=== PATIENT | male | born 1970 | race African-American/Black ===

== ENCOUNTER → 2017-12-25 | Outpatient (CLI) | payer BC ==
--- NOTE | 2017-12-25 15:42 | RADIOLOGY REPORT (SQ) ---
EXAM DESCRIPTION: ANKLE LEFT COMPLETE COMPLETED DATE/TIME: 12/25/2017 2:31 pm REASON FOR STUDY: PAIN RIGHT KNEE, LEFT ANKLE AND JOINTS OF LEFT FOOT COMPARISON: None. NUMBER OF VIEWS: Three views. TECHNIQUE: AP, lateral, and oblique without weight bearing radiographic images acquired of the left ankle. LIMITATIONS: None. FINDINGS: MINERALIZATION: Normal. BONES: No acute fracture or dislocation. No worrisome bone lesions. Talonavicular osteophytes. Smal l calcaneal and plantar enthesophytes. JOINTS: No effusions. SOFT TISSUES: Lateral soft tissue swelling. OTHER: No other significant finding. IMPRESSION: No acute findings. Chronic changes. Soft tissue swelling. TECHNICAL DOCUMENTATION: JOB ID: [id number] [employer]- All Rights Reserved
--- NOTE | 2017-12-25 15:46 | RADIOLOGY REPORT (SQ) ---
EXAM DESCRIPTION: KNEE RIGHT 4 VIEWS COMPLETED DATE/TIME: 12/25/2017 2:31 pm REASON FOR STUDY: PAIN RIGHT KNEE, LEFT ANKLE AND JOINTS OF LEFT FOOT COMPARISON: None. NUMBER OF VIEWS: Four views. TECHNIQUE: AP, lateral, and both oblique radiographic images acquired of the right knee. LIMITATIONS: None. FINDINGS: MINERALIZATION: Normal. BONES: Tricompartment degenerative arthritis. Narrowing at medial knee joint. Osteophytic change p atellofemoral joint. JOINT: Prominent right knee effusion. SOFT TISSUES: No soft tissue swelling. No radio-opaque foreign body. OTHER: No other significant finding. IMPRESSION: Degenerative arthritis of the right knee. Right knee effusion. TECHNICAL DOCUMENTATION: JOB ID: [id number] [employer]- All Rights Reserved
== END ==
LOC: OD 13:39
PROVIDERS: ATTEND Physician Assistant
DX: M25.572 Pain in left ankle and joints of left foot (principal); M25.561 Pain in right knee; M17.11 Unilateral primary osteoarthritis, right knee; M25.461 Effusion, right knee; M79.89 Other specified soft tissue disorders

== ENCOUNTER 2018-12-25 08:04 | Inpatient (IN) | payer BC ==
[2018-12-25] MEDS ORDERED: ASPIRIN 81 MG TABLET, CHEWABLE PO ONE (08:50)
[2018-12-25 09:03] LABS: ABSOLUTE EOSINOPHILS # (AUTO) 0.1 10^3/uL (0.0-0.6); ABSOLUTE LYMPHOCYTES (AUTO) 2.3 10^3/uL (0.5-4.7); ABSOLUTE MONOCYTES (AUTO) 0.6 10^3/uL (0.1-1.4); ABSOLUTE NEUT (AUTO) 3.1 10^3/uL (1.7-8.2); BASOPHILS % (AUTO) 0.6 % (0-2); EOSINOPHILS % (AUTO) 1.9 % (0-6); HEMATOCRIT 39.7 % (37.9-51.0); HEMOGLOBIN 13.7 g/dL (13.5-17.0); LYMPHOCYTES % (AUTO) 37.5 % (13-45); MEAN CORPUSCULAR HEMOGLOBIN 29.9 pg (27.0-33.4); MEAN CORPUSCULAR HGB CONC 34.6 g/dL (32.0-36.0); MEAN CORPUSCULAR VOLUME 86 fl (80-97); MONOCYTES % (AUTO) 9.5 % (3-13); PLATELET COUNT 340 10^3/uL (150-450); RED CELL DISTRIBUTION WIDTH 14.2 % (11.5-14.0); SEGMENTED NEUTROPHILS % (AUTO) 50.5 % (42-78); TOTAL CELLS COUNTED % (AUTO) 100 %; WHITE BLOOD COUNT 6.1 10^3/uL (4.0-10.5)
[2018-12-25 09:20] LABS: ALANINE AMINOTRANSFERASE 9 U/L (21-72); ALBUMIN 4.4 g/dL (3.5-5.0); ALKALINE PHOSPHATASE 97 U/L (38-126); ANION GAP 13 (5-19); ASPARTATE AMINO TRANSFERASE 16 U/L (17-59); BILIRUBIN,DIRECT 0.2 mg/dL (0.0-0.4); BILIRUBIN,TOTAL 0.5 mg/dL (0.2-1.3); BLOOD UREA NITROGEN 13 mg/dL (7-20); CALCIUM 9.6 mg/dL (8.4-10.2); CARBON DIOXIDE 26 mmol/L (22-30); CHLORIDE 102 mmol/L (98-107); CREATINE KINASE 73 U/L (55-170); GLUCOSE 276 mg/dL (75-110); POTASSIUM 3.7 mmol/L (3.6-5.0); SODIUM 141.2 mmol/L (137-145)
[2018-12-25 09:32] LABS: CREATINE KINASE MB 1.6 ng/mL (<4.55)
[2018-12-25 09:37] LABS: TROPONIN I 0.049 ng/mL
--- NOTE | 2018-12-25 09:40 | RADIOLOGY REPORT (SQ) ---
EXAM DESCRIPTION: CHEST SINGLE VIEW COMPLETED DATE/TIME: 12/25/2018 9:18 am REASON FOR STUDY: chest pain COMPARISON: 10/08/2007 EXAM PARAMETERS: NUMBER OF VIEWS: One view. TECHNIQUE: Single frontal radiographic view of the chest acquired. RADIATION DOSE: NA LIMITATIONS: None. FINDINGS: LUNGS AND PLEURA: No opacities, masses or pneumothorax. No pleural effusion. MEDIASTINUM AND HILAR STRUCTURES: No masses. Contour normal. HEART AND VASCULAR STRUCTURES: Cardiomegaly. BONES: No acute findings. HARDWARE: None in the chest. OTHER: No other significant finding. IMPRESSION: Cardiomegaly without acute abnormality of the lungs in AP projection. TECHNICAL DOCUMENTATION: JOB ID: [id number] [employer]- All Rights Reserved Reading location - IP/workstation name: [email or web address]
[2018-12-25] MEDS ORDERED: DILTIAZEM HCL INJ 25 MG/5 ML VIAL IV ONE (09:41)
[2018-12-25] MEDS: DILTIAZEM HCL/D5W 125 MG/125 ML RTUINJ IV PRN ×2 (09:53→19:38)
[2018-12-25] MEDS ORDERED: ACETAMINOPHEN 325 MG TABLET PO PRN (09:54)
[2018-12-25] MEDS ORDERED: ENOXAPARIN SODIUM INJ 150 MG/1 ML DISP.SYRIN SUBCUT ONE (09:54)
--- NOTE | 2018-12-25 09:55 | ER Document Report ---
ED General - General Chief Complaint: Chest Pain Stated Complaint: CHEST PAIN Time Seen by Provider: 12/25/18 09:31 Primary Care Provider: KENDAL MILLER MD [Primary Care Provider] - Follow up as needed Mode of Arrival: Ambulatory Information source: Patient TRAVEL OUTSIDE OF THE [place] IN LAST 30 DAYS: No - HPI Patient complains to provider of: Chest pain Onset: This morning Onset/Duration: Sudden, Better Quality of pain: Other Severity: Moderate - Numbing and heavy Pain Level: 1 Associated symptoms: Other - Palpitations, dyspnea with exertion Exacerbated by: Denies Relieved by: Denies Similar symptoms previously: No Notes: Patient presents to the emergency department for evaluation of chest pain. He described it as a numb heavy feeling, located in the substernal region. It does not radiate. He has associated rare palpitations and dyspnea with exertion. He is never had similar. - Related Data Allergies/Adverse Reactions: No Known Allergies Allergy (Verified 12/25/18 08:06) Home Medications: Patient reports lisinopril, metformin, Norvasc. He no longer takes Mobic. Past Medical History - Social History Smoking Status: Never Smoker Chew tobacco use (# tins/day): No Frequency of alcohol use: Occasional Drug Abuse: None Family History: Other - Unknown, patient does not have any siblings, does not know parents Patient has suicidal ideation: No Patient has homicidal ideation: No - Past Medical History Cardiac Medical History: Reports: Hx Hypertension Endocrine Medical History: Reports: Hx Diabetes Mellitus Type 2 Renal/ Medical History: Denies: Hx Peritoneal Dialysis Review of Systems - Review of Systems Constitutional: No symptoms reported EENT: No symptoms reported Cardiovascular: Chest pain, Palpitations, Dyspnea Respiratory: No symptoms reported Gastrointestinal: No symptoms reported Genitourinary: No symptoms reported Musculoskeletal: No symptoms reported Skin: No symptoms reported Hematologic/Lymphatic: No symptoms reported Neurological/Psychological: No symptoms reported Physical Exam - Vital signs Vitals: Temp Pulse Resp BP Pulse Ox 98.6 F 64 20 150/127 H 99 12/25/18 08:24 12/25/18 08:24 12/25/18 08:24 12/25/18 08:24 12/25/18 08:24 Interpretation: Hypertensive, Tachycardic - General General appearance: Appears well, Alert In distress: None - HEENT Head: Normocephalic, Atraumatic Eyes: Normal Pupils: PERRL - Respiratory Chest status: Nontender Breath sounds: Normal - Cardiovascular Rhythm: Irregularly irregular, Tachycardia - Abdominal Inspection: Obese Distension: No distension Tenderness: Nontender - Extremities General upper extremity: Normal inspection General lower extremity: Normal inspection Calf: Nontender - Neurological Neuro grossly intact: Yes Orientation: AAOx4 - Psychological Associated symptoms: Normal affect, Normal mood - Skin Skin Temperature: Warm Skin Moisture: Dry Course - Re-evaluation Re-evalutation: 12/25/18 10:01 Patient presented to the emergency department for evaluation of chest pain. On arrival he was found to be significantly tachycardic with new onset atrial fibrillation. This condition was explained in great detail to the patient. He remained stable throughout the course of his stay. He was given Cardizem, but the bolus and a drip, to control his heart rate. He was administered Lovenox. I did explain to him the indications for this. At , I did speak to Dr. Miller, his primary care physician. He was amenable to admitting the patient to [facility] [place] for further evaluation. - Vital Signs Vital signs: Temp Pulse Resp BP Pulse Ox 98.6 F 64 18 142/97 H 90 L 12/25/18 08:24 12/25/18 08:24 12/25/18 09:00 12/25/18 08:37 12/25/18 09:00 - Laboratory Result Diagrams: 12/25/18 08:48 12/25/18 08:48 Laboratory results interpreted by me: 12/25/18 12/25/18 08:48 08:48 RDW 14.2 H Glucose 276 H AST 16 L ALT 9 L - Diagnostic Test Radiology reviewed: Image reviewed, Reports reviewed - EKG Interpretation by Sc Rate: Tachycardia Rhythm: A.Fib [place]/QRS: Left axis deviation Additional EKG results interpreted by me: 12/25/18 10:[address]-T wave changes. No old EKG for comparison. - Consults Yossi Time consulted: 09:50 - Accepted patient for admission Consulted provider: will see as inpatient Discharge - Discharge Clinical Impression: Rapid atrial fibrillation Condition: Fair Disposition: ADMITTED INPATIENT Admitting Provider: Yossi Unit Admitted: [facility] Referrals: KENDAL MILLER MD [Primary Care Provider] - Follow up as needed
[2018-12-25 10:02] LABS: PROTHROMBIN TIME 12.6 SEC (11.4-15.4)
[2018-12-25] MEDS: ENOXAPARIN SODIUM INJ 150 MG/1 ML DISP.SYRIN SUBCUT SCH ×2 (10:37→21:10)
--- NOTE | 2018-12-25 11:11 | EKG REPORT ---
SEVERITY:- ABNORMAL ECG - ATRIAL FIBRILLATION, V-RATE 133-183 BORDERLINE LEFT AXIS DEVIATION PROLONGED QT INTERVAL : Confirmed by: Ronni Rock 25-Dec-2018 11:11:10
--- NOTE | 2018-12-25 13:48 | RADIOLOGY REPORT (SQ) ---
EXAM DESCRIPTION: CTA CHEST COMPLETED DATE/TIME: 12/25/2018 1:19 pm REASON FOR STUDY: chest pain COMPARISON: AP chest 12/25/2018 TECHNIQUE: CT scan of the chest performed using helical scanning technique with dynamic intravenous contrast injection. Images reviewed with lung, soft tissue and bone windows. Reconstructed coronal and sagittal MPR images reviewed. Additional 3 dimensional post-processing performed to develop Maximal Intensity Projection images (ND P). All images stored on PACS. All CT scanners at this facility use dose modulation, iterative reconstruction, and/or weight based d osing when appropriate to reduce radiation dose to as low as reasonably achievable (ALARA). [facility]: Dose Right [facility]: CareDose [facility]: Dose Right [facility]: Teradose 4D [facility]: [place] CONTRAST TYPE AND DOSE: contrast/concentration: Isovue 350.00 mg/ml; Total Contrast Delivered: 90.0 ml; Total Saline Delivered: 80.0 ml Contrast bolus optimized for the pulmonary arteries and aorta. RENAL FUNCTION: GFR > 60. RADIATION DOSE: CT Rad equipment meets quality standard of care and radiation dose reduction techniq ues were employed. CTDIvol: 52.8 - 93.7 mGy. DLP: 2254 mGy-cm. . LIMITATIONS: None. FINDINGS: LUNGS AND PLEURA: No masses, infiltrates, or pneumothorax. No pleural effusions or pleura l calcifications. AORTA AND GREAT VESSELS: No aneurysm or thoracic aortic dissection. HEART: No pericardial effusion. No significant coronary artery calcifications. PULMONARY ARTERIES: No emboli visualized in the main pulmonary arteries or the segmental branches. HILAR AND MEDIASTINAL STRUCTURES: No identified masses or abnormal nodes. HARDWARE: None in the chest. UPPER ABDOMEN: 2.5 cm hemangioma posterior right lobe liver unchanged from 10/08/2007 THYROID AND OTHER SOFT TISSUES: No masses. No adenopathy. BONES: No acute or significant finding. 3D MIPS: Confirm above findings. OTHER: No other significant finding. IMPRESSION: NORMAL CTA OF THE CHEST. NO PULMONARY EMBOLI. COMMENT: Quality ID # [id number]: Final reports with documentation of one or more dose reduction techniques (e.g., Automated exposure control, adjustment of the mA and/or kV according to patient size, use of iterative reconstruction technique) TECHNICAL DOCUMENTATION: JOB ID: [id number] [employer]- All Rights Reserved Reading location - IP/workstation name: [email or web address]
--- NOTE | 2018-12-25 17:11 | PDOC H&P ---
History of Present Illness Admission Date/PCP: 12/25/18 10:08 KENDAL MILLER MD Patient complains of: Chest pain and palpitation History of Present Illness: JM OSUNA is a 48 year old male This is a 48-year-old male with a history of the hypertension came to the emergency department with a complaining of chest pain and palpitations and shortness of the breath with exertions started the last couple of days and feeling worse In the emergency department patient's found the atrial fibrillation's with a rapid ventricular response and patient received a Cardizem bolus and put on a Cardizem drip Patient also received a Lovenox injections Patients to have a new onset of A. fib never had a history of the A. fib in the past Patient had a history of the high blood pressure Patient is denied any alcohol Patient's when I saw in the floor the heart rate is under control Patient is denied any chest pain Patient CT angiogram is also negative pt took otc cold med 3 days Past Medical History Cardiac Medical History: Reports: Hypertension Endocrine Medical History: Reports: Diabetes Mellitus Type 2 Social History Smoking Status: Never Smoker Frequency of Alcohol Use: Rare Hx Recreational Drug Use: No Drugs: None Hx Prescription Drug Abuse: No Family History Family History: Reviewed & Not Pertinent, Other - Unknown, patient does not have any siblings, does not know parents Parental Family History Reviewed: Yes Children Family History Reviewed: Yes Sibling(s) Family History Reviewed.: Yes Medication/Allergy Home Medications: Lisinopril [Prinivil 40 mg Tablet] 40 mg PO DAILY 12/25/18 Metformin HCl [Metformin HCl ER] 500 mg PO DAILY 12/25/18 Allergies/Adverse Reactions: No Known Allergies Allergy (Verified 12/25/18 08:06) Review of Systems Constitutional: ABSENT: chills, fever(s), headache(s), weight gain, weight loss Eyes: ABSENT: visual disturbances Ears: ABSENT: hearing changes Cardiovascular: PRESENT: chest pain, dyspnea on exertion, palpitations. ABSENT: edema, orthropnea Respiratory: ABSENT: cough, hemoptysis Gastrointestinal: ABSENT: abdominal pain, constipation, diarrhea, hematemesis, hematochezia, nausea, vomiting Genitourinary: ABSENT: dysuria, hematuria Musculoskeletal: ABSENT: joint swelling Integumentary: ABSENT: rash, wounds Neurological: ABSENT: abnormal gait, abnormal speech, confusion, dizziness, focal weakness, syncope Psychiatric: ABSENT: anxiety, depression, homidical ideation, suicidal ideation Endocrine: ABSENT: cold intolerance, heat intolerance, menstrual abnormalities, polydipsia, polyuria Hematologic/Lymphatic: ABSENT: easy bleeding, easy bruising, lymphadenopathy Physical Exam Vital Signs: Temp Pulse Resp BP Pulse Ox 98.6 F 87 16 136/92 H 100 12/25/18 15:26 12/25/18 15:26 12/25/18 15:26 12/25/18 15:26 12/25/18 15:26 Intake & Output 12/24/18 12/25/18 12/26/18 06:59 06:59 06:59 Intake Total 35 Balance 35 Weight 144.5 kg General appearance: PRESENT: no acute distress, well-developed, well-nourished Head exam: PRESENT: atraumatic, normocephalic Eye exam: PRESENT: conjunctiva pink, EOMI, PERRLA. ABSENT: scleral icterus Ear exam: PRESENT: normal external ear exam Mouth exam: PRESENT: moist, tongue midline Neck exam: PRESENT: full ROM. ABSENT: carotid bruit, JVD, lymphadenopathy, thyromegaly Respiratory exam: PRESENT: clear to auscultation bry Cardiovascular exam: PRESENT: irregular rhythm, tachycardia. ABSENT: diastolic murmur, rubs, systolic murmur Pulses: PRESENT: normal dorsalis pedis pul, +2 pedal pulses bilateral Vascular exam: PRESENT: normal capillary refill GI/Abdominal exam: PRESENT: normal bowel sounds, soft. ABSENT: distended, guarding, mass, organolmegaly, rebound, tenderness Rectal exam: PRESENT: deferred Extremities exam: ABSENT: pedal edema Neurological exam: PRESENT: alert, awake, oriented to person, oriented to place, oriented to time, oriented to situation, CN II-XII grossly intact. ABSENT: motor sensory deficit Psychiatric exam: PRESENT: appropriate affect, normal mood. ABSENT: homicidal ideation, suicidal ideation Skin exam: PRESENT: dry, intact, warm. ABSENT: cyanosis, rash Results Laboratory Results: 12/25/18 08:48 12/25/18 08:48 12/25/18 12/25/18 12/25/18 08:48 08:48 08:48 WBC 6.1 RBC 4.60 Hgb 13.7 Hct 39.7 MCV 86 MCH 29.9 MCHC 34.6 RDW 14.2 H Plt Count 340 Seg Neutrophils % 50.5 Lymphocytes % 37.5 Monocytes % 9.5 Eosinophils % 1.9 Basophils % 0.6 Absolute Neutrophils 3.1 Absolute Lymphocytes 2.3 Absolute Monocytes 0.6 Absolute Eosinophils 0.1 Absolute Basophils 0.0 Sodium 141.2 Potassium 3.7 Chloride 102 Carbon Dioxide 26 Anion Gap 13 BUN 13 Creatinine 0.83 Est GFR ( Amer) > 60 Est GFR (Non-Af Amer) > 60 Glucose 276 H Calcium 9.6 Total Bilirubin 0.5 AST 16 L ALT 9 L Alkaline Phosphatase 97 Total Protein 8.0 Albumin 4.4 TSH 2.86 12/25/18 12/25/18 12/25/18 08:48 08:48 13:00 Creatine Kinase 73 CK-MB (CK-2) 1.60 Troponin I 0.049 0.088 12/25/18 12/25/18 13:00 13:00 Creatine Kinase 64 CK-MB (CK-2) 2.20 Troponin I Cancelled Impressions: Chest/Abdomen CTA 12/25/18 00:00 IMPRESSION: NORMAL CTA OF THE CHEST. NO PULMONARY EMBOLI. Chest X-Ray 12/25/18 08:50 IMPRESSION: Cardiomegaly without acute abnormality of the lungs in AP projection. Assessment & Plan - Diagnosis (1) Atrial fibrillation with rapid ventricular response Is this a current diagnosis for this admission?: Yes Plan: Start the patient on Lovenox continues to Cardizem drip We will order the echocardiogram Consult the cardiology Check a TSH (2) Chest pain Qualifiers: Chest pain type: unspecified Qualified Code(s): R07.9 - Chest pain, unspecified Is this a current diagnosis for this admission?: Yes Plan: Most likely due to the above conditions will do the serial cardiac enzyme and follow with the cardiology (3) Hypertension Qualifiers: Hypertension type: essential hypertension Qualified Code(s): I10 - Essential (primary) hypertension Is this a current diagnosis for this admission?: Yes (4) Elevated troponin Is this a current diagnosis for this admission?: Yes Plan: Most likely due to the A. fib with rapid ventricular response we will do the serial cardiac enzyme (5) Type 2 diabetes mellitus Qualifiers: Diabetes mellitus senior living insulin use: without termination clerk use Is this a current diagnosis for this admission?: Yes Plan: start ss with [facility] - Time Time Spent: 30 to 50 Minutes Medications reviewed and adjusted accordingly: Yes Anticipated discharge: Home Within: Other - Inpatient Certification Based on my medical assessment, after consideration of the patient's comorbidities, presenting symptoms, or acuity I expect that the services needed warrant INPATIENT care.: Yes I certify that my determination is in accordance with my understanding of Medicare's requirements for reasonable and necessary INPATIENT services [42 CFR 412.3e].: Yes Medical Necessity: Need Close Monitoring Due to Risk of Patient Decompensation 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
[2018-12-25] MEDS: LANSOPRAZOLE 15 MG TAB.RAP.DR PO SCH (18:22)
[2018-12-25] MEDS ORDERED: SOTALOL HCL 80 MG TABLET PO ONE (20:00)
[2018-12-25 20:25] LABS: CREATINE KINASE MB 2.22 ng/mL (<4.55)
[2018-12-25 20:31] LABS: TROPONIN I 0.144 ng/mL
--- NOTE | 2018-12-25 22:31 | PDOC CONSULTATION ---
Consultation-Blank Consultation: CARDIOLOGY CONSULTATION by Dr. Cecy Perez on 12/25/2018. Patient seen at 8 AM on 12/25/2018. REASON FOR CONSULTATION: Chest pain or shortness of breath and palpitations and patient who presents with atrial fibrillation with rapid ventricular response. HISTORY OF PRESENT ILLNESS: Patient is a 55-year-old morbidly obese Afro- [place] male with a history of hypertension and diabetes mellitus. Will came to the emergency room with sudden onset of chest pain and palpitations and shortness of breath. It states he started the day before admission. And was getting worse and hence he came to the emergency room here the patient was seen to be in atrial fibrillation with rapid ventricular response and the patient was started on a Cardizem drip as soon as the heart rate did come down the patient's chest pain and shortness of breath resolved. He has never had a history of atrial fibrillation in the past. There is no history of coronary artery disease or NH or congestive heart failure. There is no syncope. There is no associated dizziness, near-syncope or syncope with the atrial fibrillation with rapid ventricular response. PAST MEDICAL HISTORY: He has a history of hypertension. No history of coronary artery disease or NH. No history of congenital heart disease. No history of prior atrial fibrillation or any other cardiac arrhythmia. No history of PND or orthopnea. Recent symptoms or shortness of breath with exertion to rest shortness of breath, with PND and orthopnea and chest pains when the patient was in atrial fibrillation with rapid ventricular response. At present this is resolved. There is no history of thyroid disease. The patient has a history of diabetes mellitus type 2 [id number]. There is no history of chronic kidney disease. There is no history of TIA or CVA. The patient has no history of GI bleed or any contraindication to anticoagulation full dose. Past surgical history is negative. FAMILY HISTORY is not obtainable since the patient does not know his parents since the before he could get to know them. He has no siblings. Allergies: No known allergies SOCIAL HISTORY: The patient does not smoke there is no history of EtOH abuse. REVIEW SYSTEMS: CONSTITUTIONAL: Denies any fever chills or rigors. HEAD: Denies headaches or head injury. EYES: No history of amblyopia diplopia. No history of amaurosis fugax. EARS: No history of hearing loss. No history of tinnitus. No history of recurrent ear infections. NOSE: No history of hayfever. No history of nosebleeds. No history of nasal polyps. MOUTH: No history of altered taste sensation. No no ulcers in the mouth. No bleeding from the gums. THROAT: No history of odynophagia or dysphagia. No history of recurrent sore throats. SKIN: No history of psoriasis or eczema. No history of pruritus. No history of yellowish discoloration of the skin. NECK: No history of neck pain. No history of goiter. LUNGS: No history of asthma or COPD. No history of pulmonary embolism. No history of cough or wheezing. No history of upper or lower respiratory tract infections. He has symptoms suggestive of sleep apnea, but has not had a sleep study done. He does note in his sleep. He does not know if he stops breathing, but states that after a good night rest he does not feel rested in the morning when he wakes up. HEART: History of hypertension present states is usually well controlled. He has no prior history of cardiac arrhythmia or coronary artery disease, or NH or anginal symptoms. No history of congestive heart failure. Recent symptoms of PND orthopnea with the patient being in atrial fibrillation. This is resolved. No leg edema. No dizziness or syncope. No history of sudden . GI: No history of GERD or GI bleed. No history of fatty food intolerance. No history of altered bowel movements. RENAL: No history of chronic kidney disease. No history of symptoms of enlarged prostate. No history of UTI symptoms. No history of hematuria pyuria or dysuria. MUSCULOSKELETAL: Denies arthritis or collagen vascular disease. ENDOCRINE: History of diabetes mellitus type 2 [id number]. No history of polydipsia polyuria. No history of heat or cold intolerance. METABOLIC: No history of gout history of morbid obesity present. No history of hyperlipidemia. CORPORATE DEVELOPMENT MANAGER: No history of TIA CVA. No history of headaches migraines or seizures. PSYCHIATRIC: No history of anxiety or depression. No history of suicidal ideation. No history of homicidal ideation. VASCULAR: No history of calf or buttock claudication. No history of DVT. HEMATOLOGICAL: No history of bleeding diathesis. No history of clotting disorders. PHYSICAL EXAMINATION: The patient is morbidly obese. At present in no acute distress. He is without any chest pain or discomfort or shortness of breath. He is well-groomed Selected Entries 12/25/18 08:24 Temperature 98.6 F Temperature Oral Source Pulse Rate [ 64 Right] Respiratory 20 Rate Blood Pressure 150/127 H [Left Upper Arm ] Blood Pressure 134 Mean [Left Upper Arm] Blood Pressure Sitting Position [Left Upper Arm] O2 Sat by Pulse 99 Oximetry Oxygen Delivery Room Air Method ( includes room air) HEAD: Is atraumatic normocephalic. EYES: Pupils equal round regular reactive to light accommodation. Extra ocular movements are normal. There is no conjunctival pallor. There is no scleral icterus. EARS: Tympanic memories are intact. External auditory canals are clear. NOSE: There is no deviated nasal septum. There is no inflammation of the nasal mucous membrane. MOUTH: Mucous membranes of mouth are moist. There is no ulcers in the mouth. There is no bleeding from the gums. THROAT: There is no redness of the oropharynx. There is no exudates. SKIN: There is no skin rashes or skin lesions. There is no petechia or ecchymosis. NECK: Is supple. There is no JVD. Carotids are equal there is no bruit. There is no lymphadenopathy. There is no goiter. There is no accessory muscles of respiration use. Trachea central. LUNGS: Is clear to auscultation percussion, without any rhonchi rales or wheezing. On palpation there is no chest wall tenderness. HEART: S1-S2 is heard. S1 is of variable intensity. There is no S3 gallop. There is no S4 gallop. There is systolic murmur left sternal border and the apex. There is no rub ABDOMEN: Is obese. There is no hepatosplenomegaly. Bowel sounds are well heard. There is no tender areas masses. EXTREMITIES: Femorals are diminished. Femorals are deep. There is no femoral bruits. Leg pulses are mildly diminished. There is no pedal edema. There is no DVT or cellulitis. There is no calf tenderness. CORPORATE DEVELOPMENT MANAGER: The patient is conscious awake alert oriented x3 with no focal deficits. PSYCHIATRIC: The patient judgment and insight are intact his affect is normal. 12/25/18 12/25/18 12/25/18 08:48 08:48 08:48 WBC 6.1 RBC 4.60 Hgb 13.7 Hct 39.7 MCV 86 MCH 29.9 MCHC 34.6 RDW 14.2 H Plt Count 340 Seg Neutrophils % 50.5 Lymphocytes % 37.5 Monocytes % 9.5 Eosinophils % 1.9 Basophils % 0.6 Absolute Neutrophils 3.1 Absolute Lymphocytes 2.3 Absolute Monocytes 0.6 Absolute Eosinophils 0.1 Absolute Basophils 0.0 PT INR APTT Sodium 141.2 Potassium 3.7 Chloride 102 Carbon Dioxide 26 Anion Gap 13 BUN 13 Creatinine 0.83 Est GFR ( Amer) > 60 Glucose 276 H Calcium 9.6 Total Bilirubin 0.5 Direct Bilirubin 0.2 Neonat Total Bilirubin Not Reportable Neonat Direct Bilirubin Not Reportable Neonat Indirect Bili Not Reportable AST 16 L ALT 9 L Alkaline Phosphatase 97 Creatine Kinase 73 CK-MB (CK-2) 1.60 Troponin I 0.049 Total Protein 8.0 Albumin 4.4 TSH 12/25/18 12/25/18 08:48 08:48 WBC RBC Hgb Hct MCV MCH MCHC RDW Plt Count Seg Neutrophils % Lymphocytes % Monocytes % Eosinophils % Basophils % Absolute Neutrophils Absolute Lymphocytes Absolute Monocytes Absolute Eosinophils Absolute Basophils PT 12.6 INR 0.90 APTT 34.0 Sodium Potassium Chloride Carbon Dioxide Anion Gap BUN Creatinine Est GFR ( Amer) Glucose Calcium Total Bilirubin Direct Bilirubin Neonat Total Bilirubin Neonat Direct Bilirubin Neonat Indirect Bili AST ALT Alkaline Phosphatase Creatine Kinase CK-MB (CK-2) Troponin I Total Protein Albumin TSH 2.86 Home Meds Table Lisinopril [Prinivil 40 mg Tablet] 40 mg PO DAILY 12/25/18 Metformin HCl [Metformin HCl ER] 500 mg PO DAILY 12/25/18 12/25/18 09:54 Acetaminophen [Tylenol 325 mg Tablet] 650 mg PO Q4HP PRN 12/25/18 14:56 Flu Vacc [id number](6Mos Up)/Pf [Fluarix Adlt Quad Vac 0.5 ml Syr] 0.5 ml IM .DISCHARGE PRN 12/25/18 17:00 Lansoprazole [Prevacid 15 mg Odt Tablet] 15 mg PO BID@0600,1700 12/26/18 09:30 Glucagon,Human Recombinant [Glucagen Inj 1 mg Vial] 1 mg IM PRN PRN 12/26/18 11:00 Insulin Regular, Human [Humulin R (Pyxis) Insulin 100 Unit/ml 3Ml] 0 - 12 unit SUBCUT ACHS EKG: Atrial fibrillation with rapid ventricular response. Borderline left axis deviation. CHEST X-ray: Cardiomegaly without acute process. CT a of the chest: No pulmonary emboli. Normal CT scan of the chest with contrast. IMPRESSION/RECOMMENDATION: 1. Persistent atrial fibrillation: At present heart rate seems to be better. The patient is without any chest pain or discomfort. There is no shortness of breath. Continue IV Cardizem drip. The patient's corrected Luis Vascor is 2. Hence patient will benefit from chronic anticoagulation therapy would recommend starting the patient on Lovenox at 1 mg/kg subcutaneously every 12 hours, and subsequently switched to an oral anticoagulant agent. This has been discussed with the patient, and with Dr. Sy.. At present the troponin I is within normal limits. 2. Hypertension: Blood pressure at times did seem to be high. The patient will be started on Cozaar which has been later increased to Cozaar 50 mg p.o. every 12 hours. 3. Diabetes mellitus, continue antidiabetic treatment and monitor blood sugars. 4. Morbid obesity: Later would recommend the patient address this issue with weight loss losing measures.5.. Symptoms suggestive of sleep apnea: Would recommend a sleep study as an outpatient. 5. The patient's coronary artery risk factors are age, hypertension, and diabetes mellitus.? Lipid status. Later we will test the patient lipids. Medications reviewed. Medications adjusted and new medications added. Medical decision making is of high complexity. 40 minutes spent on this patient with more than 50% of time spent in direct patient care.
[2018-12-26 02:08] LABS: ABSOLUTE BASOPHILS # (AUTO) 0.1 10^3/uL (0.0-0.2); ABSOLUTE EOSINOPHILS # (AUTO) 0.2 10^3/uL (0.0-0.6); ABSOLUTE LYMPHOCYTES (AUTO) 3.3 10^3/uL (0.5-4.7); ABSOLUTE MONOCYTES (AUTO) 0.7 10^3/uL (0.1-1.4); ABSOLUTE NEUT (AUTO) 3.4 10^3/uL (1.7-8.2); BASOPHILS % (AUTO) 1.1 % (0-2); EOSINOPHILS % (AUTO) 2.1 % (0-6); HEMATOCRIT 39.7 % (37.9-51.0); HEMOGLOBIN 13.5 g/dL (13.5-17.0); MEAN CORPUSCULAR HEMOGLOBIN 29.7 pg (27.0-33.4); MEAN CORPUSCULAR HGB CONC 34.2 g/dL (32.0-36.0); MEAN CORPUSCULAR VOLUME 87 fl (80-97); MONOCYTES % (AUTO) 9.5 % (3-13); PLATELET COUNT 346 10^3/uL (150-450); RED BLOOD COUNT 4.56 10^6/uL (4.35-5.55); SEGMENTED NEUTROPHILS % (AUTO) 44.3 % (42-78); TOTAL CELLS COUNTED % (AUTO) 100 %; WHITE BLOOD COUNT 7.8 10^3/uL (4.0-10.5)
[2018-12-26 02:29] LABS: ANION GAP 11 (5-19); BLOOD UREA NITROGEN 18 mg/dL (7-20); CALCIUM 9.2 mg/dL (8.4-10.2); CARBON DIOXIDE 25 mmol/L (22-30); CHLORIDE 103 mmol/L (98-107); GLUCOSE 176 mg/dL (75-110); POTASSIUM 3.6 mmol/L (3.6-5.0)
[2018-12-26 03:25] LABS: CREATINE KINASE MB 1.82 ng/mL (<4.55); TROPONIN I 0.134 ng/mL
[2018-12-26] MEDS: DILTIAZEM HCL/D5W 125 MG/125 ML RTUINJ IV PRN ×2 (04:06→22:14)
[2018-12-26] MEDS: LANSOPRAZOLE 15 MG TAB.RAP.DR PO SCH ×2 (05:19→17:31)
--- NOTE | 2018-12-26 08:13 | PDOC PROGRESS REPORT ---
Subjective Progress Note for:: 12/26/18 Subjective:: Patient is currently doing fair Denied any chest pain to than any shortness of the breath Patient currently on a Cardizem drip Seen by Dr. Teixeira start the patient on p.o. sotalol and hopefully discontinue the drip Patient's cardiac enzyme is elevated as per discussed with the cardiology most likely from the A. fib with RVR Schedule the echocardiogram today Reason For Visit: CHEST PAIN,NEW ONSET AFIB Physical Exam Vital Signs: Temp Pulse Resp BP Pulse Ox 98.5 F 74 18 139/91 H 97 12/26/18 03:58 12/26/18 06:00 12/26/18 03:58 12/26/18 06:00 12/26/18 03:58 Intake & Output 12/25/18 12/26/18 12/27/18 06:59 06:59 06:59 Intake Total 570 Balance 570 Weight 145.6 kg General appearance: PRESENT: no acute distress, well-developed, well-nourished Head exam: PRESENT: atraumatic, normocephalic Eye exam: PRESENT: conjunctiva pink, EOMI, PERRLA. ABSENT: scleral icterus Ear exam: PRESENT: normal external ear exam Mouth exam: PRESENT: moist, tongue midline Neck exam: PRESENT: full ROM. ABSENT: carotid bruit, JVD, lymphadenopathy, thyromegaly Respiratory exam: PRESENT: clear to auscultation bry Cardiovascular exam: PRESENT: RRR. ABSENT: diastolic murmur, rubs, systolic murmur Pulses: PRESENT: normal dorsalis pedis pul, +2 pedal pulses bilateral Vascular exam: PRESENT: normal capillary refill GI/Abdominal exam: PRESENT: normal bowel sounds, soft. ABSENT: distended, guarding, mass, organolmegaly, rebound, tenderness Rectal exam: PRESENT: deferred Neurological exam: PRESENT: alert, awake, oriented to person, oriented to place, oriented to time, oriented to situation, CN II-XII grossly intact. ABSENT: motor sensory deficit Psychiatric exam: PRESENT: appropriate affect, normal mood. ABSENT: homicidal ideation, suicidal ideation Skin exam: PRESENT: dry, intact, warm. ABSENT: cyanosis, rash Results Laboratory Results: 12/26/18 01:50 12/26/18 01:50 12/25/18 12/25/18 12/25/18 08:48 08:48 08:48 WBC 6.1 RBC 4.60 Hgb 13.7 Hct 39.7 MCV 86 MCH 29.9 MCHC 34.6 RDW 14.2 H Plt Count 340 Seg Neutrophils % 50.5 Lymphocytes % 37.5 Monocytes % 9.5 Eosinophils % 1.9 Basophils % 0.6 Absolute Neutrophils 3.1 Absolute Lymphocytes 2.3 Absolute Monocytes 0.6 Absolute Eosinophils 0.1 Absolute Basophils 0.0 Sodium 141.2 Potassium 3.7 Chloride 102 Carbon Dioxide 26 Anion Gap 13 BUN 13 Creatinine 0.83 Est GFR ( Amer) > 60 Est GFR (Non-Af Amer) > 60 Glucose 276 H Calcium 9.6 Magnesium Total Bilirubin 0.5 AST 16 L ALT 9 L Alkaline Phosphatase 97 Total Protein 8.0 Albumin 4.4 TSH 2.86 12/26/18 12/26/18 01:50 01:50 WBC 7.8 RBC 4.56 Hgb 13.5 Hct 39.7 MCV 87 MCH 29.7 MCHC 34.2 RDW 14.0 Plt Count 346 Seg Neutrophils % 44.3 Lymphocytes % 43.0 Monocytes % 9.5 Eosinophils % 2.1 Basophils % 1.1 Absolute Neutrophils 3.4 Absolute Lymphocytes 3.3 Absolute Monocytes 0.7 Absolute Eosinophils 0.2 Absolute Basophils 0.1 Sodium 139.0 Potassium 3.6 Chloride 103 Carbon Dioxide 25 Anion Gap 11 BUN 18 Creatinine 0.83 Est GFR ( Amer) > 60 Est GFR (Non-Af Amer) > 60 Glucose 176 H Calcium 9.2 Magnesium 1.9 Total Bilirubin AST ALT Alkaline Phosphatase Total Protein Albumin [facility] 12/25/18 12/25/18 12/25/18 08:48 08:48 13:00 Creatine Kinase 73 CK-MB (CK-2) 1.60 Troponin I 0.049 0.088 NT-Pro-B Natriuret Pep 12/25/18 12/25/18 12/25/18 13:00 13:00 19:40 Creatine Kinase 64 71 CK-MB (CK-2) 2.20 Troponin I Cancelled NT-Pro-B Natriuret Pep 12/25/18 12/26/18 12/26/18 19:40 01:50 01:50 Creatine Kinase 63 CK-MB (CK-2) 2.22 1.82 Troponin I 0.144 0.134 NT-Pro-B Natriuret Pep 12/26/18 01:50 Creatine Kinase CK-MB (CK-2) Troponin I NT-Pro-B Natriuret Pep 715 H Impressions: Chest/Abdomen CTA 12/25/18 00:00 IMPRESSION: NORMAL CTA OF THE CHEST. NO PULMONARY EMBOLI. Chest X-Ray 12/25/18 08:50 IMPRESSION: Cardiomegaly without acute abnormality of the lungs in AP projection. Assessment & Plan - Diagnosis (1) Atrial fibrillation with rapid ventricular response Is this a current diagnosis for this admission?: Yes Plan: on a Cardizem drip start on a p.o. sotalol per cardiology Will switch to Eliquis 5 mg twice a day (2) Chest pain Qualifiers: Chest pain type: unspecified Qualified Code(s): R07.9 - Chest pain, unspecified Is this a current diagnosis for this admission?: Yes Plan: Most likely due to the above conditions will do the serial cardiac enzyme and follow with the cardiology (3) Hypertension Qualifiers: Hypertension type: essential hypertension Qualified Code(s): I10 - Essential (primary) hypertension Is this a current diagnosis for this admission?: Yes (4) Elevated troponin Is this a current diagnosis for this admission?: Yes Plan: Most likely due to the A. fib with rapid ventricular response we will do the serial cardiac enzyme (5) Type 2 diabetes mellitus Qualifiers: Diabetes mellitus terminal operator insulin use: without terminal operator use Is this a current diagnosis for this admission?: Yes Plan: start ss with [facility] - Time Time Spent with patient: 15-24 minutes Medications reviewed and adjusted accordingly: Yes Anticipated discharge: Home Within: Other - Plan Summary Plan Summary: Start on Eliquis 5 mg p.o. twice a day discontinue the Lovenox as per discussed with the cardiology Patients may be need a sleep study as outpatient Schedule the echo today
[2018-12-26] MEDS ORDERED: SOTALOL HCL 80 MG TABLET PO ONE ×2 (08:30→22:00)
[2018-12-26 09:23] LABS: CREATINE KINASE MB 1.85 ng/mL (<4.55); TROPONIN I 0.096 ng/mL
[2018-12-26] MEDS ORDERED: DEXTROSE 50%-WATER SYRINGE 25 GM/50 ML DOSE IV PRN (09:30)
[2018-12-26] MEDS ORDERED: DEXTROSE 50%-WATER SYRINGE 12.5 GM/25 ML DOSE IV PRN (09:30)
[2018-12-26] MEDS ORDERED: DEXTROSE 40% GEL 15 GM TUBE PO PRN (09:30)
[2018-12-26] MEDS ORDERED: GLUCAGON,HUMAN RECOMB 1 MG INJ IM PRN (09:30)
[2018-12-26] MEDS ORDERED: DEXTROSE 40% GEL 15 GM TUBE X 2 PO PRN (09:30)
[2018-12-26] MEDS: APIXABAN 5 MG TABLET PO SCH ×2 (10:26→17:32)
[2018-12-26] MEDS ORDERED: METOPROLOL TARTRATE PF/INJ 5 MG/5 ML SDV IV ONE (12:15)
[2018-12-26] MEDS: INSULIN REG, HUMAN 100 UNIT/ML 3 ML VIAL (PYX) SUBCUT SCH ×3 (12:59→22:11)
[2018-12-26] MEDS ORDERED: LOSARTAN POTASSIUM 50 MG TABLET PO ONE (20:45)
--- NOTE | 2018-12-26 21:34 | Progress Note ---
Provider Note Provider Note: CARDIOLOGY PROGRESS NOTE by Dr. Cecy Clark on 12/26/2018. SUBJECTIVE: The patient continues to be in atrial fibrillation. He has no chest pain or discomfort. There is no shortness of breath there is no PND orthopnea. There is no ventricular arrhythmia seen on the monitor. There is no bleeding on on full dose Lovenox. There is no TIA CVA symptoms. PHYSICAL EXAMINATION: The patient is morbidly obese. He is well-groomed. He is in no acute distress. Selected Entries 12/26/18 12:32 Temperature 97.7 F Temperature Oral Source Pulse Rate 102 H Respiratory 18 Rate Blood Pressure 138/94 H Blood Pressure 108 Mean BP Location Right Arm BP Position Sitting O2 Sat by Pulse 99 Oximetry Oxygen Delivery Room Air Method HEAD: Is atraumatic normocephalic. EYES: Pupils equal round regular reactive to light accommodation. Extra ocular movements are normal. There is no conjunctival pallor. There is no scleral icterus. EARS: Tympanic memories are intact. External auditory canals are clear. NOSE: There is no deviated nasal septum. There is no inflammation of the nasal mucous membrane. MOUTH: Mucous membranes of mouth are moist. There is no ulcers in the mouth. There is no bleeding from the gums. THROAT: There is no redness of the oropharynx. There is no exudates. SKIN: There is no skin rashes or skin lesions. There is no petechia or ecchymosis. NECK: Is supple. There is no JVD. Carotids are equal there is no bruit. There is no lymphadenopathy. There is no goiter. There is no accessory muscles of respiration use. Trachea central. LUNGS: Is clear to auscultation percussion, without any rhonchi rales or wheezing. On palpation th ere is no chest wall tenderness. HEART: S1-S2 is heard. S1 is of variable intensity. There is no S3 gallop. There is no S4 gallop. There is systolic murmur left sternal border and the apex. There is no rub ABDOMEN: Is obese. There is no hepatosplenomegaly. Bowel sounds are well heard. There is no tender areas masses. EXTREMITIES: Femorals are diminished. Femorals are deep. There is no femoral bruits. Leg pulses are mildly diminished. There is no pedal edema. There is no DVT or cellulitis. There is no calf tenderness. ELECTRIC LINEMAN: The patient is conscious awake alert oriented x3 with no focal deficits. PSYCHIATRIC: The patient judgment and insight are intact his affect is normal. 12/25/18 12/25/18 12/26/18 19:40 19:40 01:50 WBC RBC Hgb Hct MCV MCH MCHC RDW Plt Count Seg Neutrophils % Lymphocytes % Monocytes % Eosinophils % Basophils % Absolute Neutrophils Absolute Lymphocytes Absolute Monocytes Absolute Eosinophils Absolute Basophils Sodium Potassium Chloride Carbon Dioxide Anion Gap BUN Creatinine Est GFR ( Amer) Glucose POC Glucose Calcium Magnesium Creatine Kinase 71 63 CK-MB (CK-2) 2.22 Troponin I 0.144 NT-Pro-B Natriuret Pep 12/26/18 12/26/18 12/26/18 01:50 01:50 01:50 WBC 7.8 RBC 4.56 Hgb 13.5 Hct 39.7 MCV 87 MCH 29.7 MCHC 34.2 RDW 14.0 Plt Count 346 Seg Neutrophils % 44.3 Lymphocytes % 43.0 Monocytes % 9.5 Eosinophils % 2.1 Basophils % 1.1 Absolute Neutrophils 3.4 Absolute Lymphocytes 3.3 Absolute Monocytes 0.7 Absolute Eosinophils 0.2 Absolute Basophils 0.1 Sodium 139.0 Potassium 3.6 Chloride 103 Carbon Dioxide 25 Anion Gap 11 BUN 18 Creatinine 0.83 Est GFR ( Amer) > 60 Glucose 176 H POC Glucose Calcium 9.2 Magnesium 1.9 Creatine Kinase CK-MB (CK-2) 1.82 Troponin I 0.134 NT-Pro-B Natriuret Pep 12/26/18 12/26/18 12/26/18 01:50 06:38 08:25 WBC RBC Hgb Hct MCV MCH MCHC RDW Plt Count Seg Neutrophils % Lymphocytes % Monocytes % Eosinophils % Basophils % Absolute Neutrophils Absolute Lymphocytes Absolute Monocytes Absolute Eosinophils Absolute Basophils Sodium Potassium Chloride Carbon Dioxide Anion Gap BUN Creatinine Est GFR ( Amer) Glucose POC Glucose 183 H Calcium Magnesium Creatine Kinase 60 CK-MB (CK-2) Troponin I NT-Pro-B Natriuret Pep 715 H 12/26/18 08:25 WBC RBC Hgb Hct MCV MCH MCHC RDW Plt Count Seg Neutrophils % Lymphocytes % Monocytes % Eosinophils % Basophils % Absolute Neutrophils Absolute Lymphocytes Absolute Monocytes Absolute Eosinophils Absolute Basophils Sodium Potassium Chloride Carbon Dioxide Anion Gap BUN Creatinine Est GFR ( Amer) Glucose POC Glucose Calcium Magnesium Creatine Kinase CK-MB (CK-2) 1.85 Troponin I 0.096 NT-Pro-B Natriuret Pep IMPRESSION/RECOMMENDATION: 1. Elevated Troponin: This is due to type 2 PA (Supply demand mismatch and not a NSTEMI. We will treat the patient's underlying cause of the elevation of troponin, that is treat the atrial fibrillation, and try to convert the patient into sinus rhythm. 2. Persistent atrial fibrillation: At present heart rate seems to be better. Will decrease the patient's IV Cardizem drip. We will increase the patient's sotalol dose to 80 mg to see if this will convert the patient to sinus rhythm. The patient's corrected Luis vas 2 score is 2, and hence chronic anticoagulation therapy for stroke prophylaxis is indicated. The benefits and bleeding complications of oral anticoagulants have been discussed with the patient. Patient is agreeable. We will stop the patient's Lovenox and start the patient on Eliquis 5 mg p.o. twice daily. Patient on chronic anticoagulant therapy with Eliquis. 3. Hypertension: Blood pressure at times did seem to be high. The patient will be started on Cozaar which has been later increased to Cozaar 50 mg p.o. every 12 hours. 4. Diabetes mellitus, continue antidiabetic treatment and monitor blood sugars. 5. Morbid obesity: Later would recommend the patient address this issue with weight loss losing measures. 6. Symptoms suggestive of sleep apnea: Would recommend a sleep study as an outpatient. 7. The patient's coronary artery disease risk factors are age, hypertension, and diabetes mellitus. In view of this later as an outpatient will get a IV Cardiolite Lexiscan stress test, and also would get an outpatient echocardiographic in view of the patient's build. Medications reviewed. Medications adjusted and new medications added. Medical decision making is of high complexity. 40 minutes spent on this patient with more than 50% of time spent in direct patient care. Discussed with Dr. Sy, the attending physician
[2018-12-27] MEDS: LANSOPRAZOLE 15 MG TAB.RAP.DR PO SCH ×2 (06:16→17:35)
[2018-12-27] MEDS: DILTIAZEM HCL/D5W 125 MG/125 ML RTUINJ IV PRN (06:20)
[2018-12-27 06:29] LABS: ABSOLUTE BASOPHILS # (AUTO) 0.1 10^3/uL (0.0-0.2); ABSOLUTE EOSINOPHILS # (AUTO) 0.1 10^3/uL (0.0-0.6); ABSOLUTE LYMPHOCYTES (AUTO) 2.7 10^3/uL (0.5-4.7); ABSOLUTE MONOCYTES (AUTO) 0.7 10^3/uL (0.1-1.4); ABSOLUTE NEUT (AUTO) 3.2 10^3/uL (1.7-8.2); EOSINOPHILS % (AUTO) 2.1 % (0-6); HEMOGLOBIN 13.4 g/dL (13.5-17.0); LYMPHOCYTES % (AUTO) 39.7 % (13-45); MEAN CORPUSCULAR HGB CONC 34.4 g/dL (32.0-36.0); MEAN CORPUSCULAR VOLUME 87 fl (80-97); MONOCYTES % (AUTO) 10.3 % (3-13); PLATELET COUNT 342 10^3/uL (150-450); RED BLOOD COUNT 4.47 10^6/uL (4.35-5.55); RED CELL DISTRIBUTION WIDTH 14.5 % (11.5-14.0); SEGMENTED NEUTROPHILS % (AUTO) 46.9 % (42-78); TOTAL CELLS COUNTED % (AUTO) 100 %; WHITE BLOOD COUNT 6.8 10^3/uL (4.0-10.5)
[2018-12-27 07:03] LABS: ANION GAP 9 (5-19); BLOOD UREA NITROGEN 16 mg/dL (7-20); CALCIUM 9.3 mg/dL (8.4-10.2); CARBON DIOXIDE 26 mmol/L (22-30); CHLORIDE 103 mmol/L (98-107); GLUCOSE 177 mg/dL (75-110); POTASSIUM 3.7 mmol/L (3.6-5.0); SODIUM 137.8 mmol/L (137-145)
[2018-12-27] MEDS: INSULIN REG, HUMAN 100 UNIT/ML 3 ML VIAL (PYX) SUBCUT SCH ×4 (08:11→21:24)
[2018-12-27] MEDS ORDERED: DILTIAZEM HCL 180 MG CAPSULE.CR PO ONE (09:14)
[2018-12-27] MEDS: APIXABAN 5 MG TABLET PO SCH ×2 (09:17→17:35)
[2018-12-27] MEDS: DILTIAZEM HCL 180 MG CAPSULE.CR PO SCH ×2 (11:53→21:18)
[2018-12-27] MEDS: LOSARTAN POTASSIUM 50 MG TABLET PO SCH ×2 (13:29→21:18)
--- NOTE | 2018-12-27 14:08 | PDOC PROGRESS REPORT ---
Subjective Progress Note for:: 12/27/18 Subjective:: Patient seen by the bedside, he was admitted when he presented with atrial fibrillation with rapid ventricular response, he has no new complaints today. Reason For Visit: CHEST PAIN,NEW ONSET AFIB Physical Exam Vital Signs: Temp Pulse Resp BP Pulse Ox 98.0 F 96 18 146/87 H 99 12/27/18 11:49 12/27/18 11:49 12/27/18 11:49 12/27/18 11:49 12/27/18 11:49 Intake & Output 12/26/18 12/27/18 12/28/18 06:59 06:59 06:59 Intake Total 570 1224 Balance 570 1224 Weight 145.6 kg 145.4 kg General appearance: PRESENT: no acute distress Eye exam: PRESENT: PERRLA Respiratory exam: PRESENT: clear to auscultation bry Cardiovascular exam: PRESENT: +S1, +S2 GI/Abdominal exam: PRESENT: soft Neurological exam: PRESENT: alert Results Laboratory Results: 12/27/18 06:08 12/27/18 06:08 12/27/18 12/27/18 06:08 06:08 WBC 6.8 RBC 4.47 Hgb 13.4 L Hct 39.0 MCV 87 MCH 30.0 MCHC 34.4 RDW 14.5 H Plt Count 342 Seg Neutrophils % 46.9 Lymphocytes % 39.7 Monocytes % 10.3 Eosinophils % 2.1 Basophils % 1.0 Absolute Neutrophils 3.2 Absolute Lymphocytes 2.7 Absolute Monocytes 0.7 Absolute Eosinophils 0.1 Absolute Basophils 0.1 Sodium 137.8 Potassium 3.7 Chloride 103 Carbon Dioxide 26 Anion Gap 9 BUN 16 Creatinine 0.84 Est GFR ( Amer) > 60 Est GFR (Non-Af Amer) > 60 Glucose 177 H Calcium 9.3 Magnesium 1.9 12/25/18 12/25/18 12/25/18 08:48 08:48 13:00 Creatine Kinase 73 CK-MB (CK-2) 1.60 Troponin I 0.049 0.088 NT-Pro-B Natriuret Pep 12/25/18 12/25/18 12/25/18 13:00 13:00 19:40 Creatine Kinase 64 71 CK-MB (CK-2) 2.20 Troponin I Cancelled NT-Pro-B Natriuret Pep 02/06/0512/26/18 12/26/18 19:40 01:50 01:50 Creatine Kinase 63 CK-MB (CK-2) 2.22 1.82 Troponin I 0.144 0.134 NT-Pro-B Natriuret Pep 12/26/18 12/26/18 12/26/18 01:50 08:25 08:25 Creatine Kinase 60 CK-MB (CK-2) 1.85 Troponin I 0.096 NT-Pro-B Natriuret Pep 715 H 12/27/18 06:08 Creatine Kinase CK-MB (CK-2) Troponin I NT-Pro-B Natriuret Pep 926 H Impressions: Chest/Abdomen CTA 12/25/18 00:00 IMPRESSION: NORMAL CTA OF THE CHEST. NO PULMONARY EMBOLI. Chest X-Ray 12/25/18 08:50 IMPRESSION: Cardiomegaly without acute abnormality of the lungs in AP projection. Assessment & Plan - Diagnosis (1) Atrial fibrillation with rapid ventricular response Is this a current diagnosis for this admission?: Yes (2) Chest pain Qualifiers: Chest pain type: unspecified Qualified Code(s): R07.9 - Chest pain, unspecified Is this a current diagnosis for this admission?: Yes (3) Elevated troponin Is this a current diagnosis for this admission?: Yes (4) Hypertension Qualifiers: Hypertension type: essential hypertension Qualified Code(s): I10 - Essential (primary) hypertension Is this a current diagnosis for this admission?: Yes (5) Type 2 diabetes mellitus Qualifiers: Diabetes mellitus snf insulin use: without intermediate school teacher use Diabetes mellitus complication status: without complication Qualified Code(s): E11.9 - Type 2 diabetes mellitus without complications Is this a current diagnosis for this admission?: Yes - Plan Summary Plan Summary: Continue present treatment with sotalol and other treatment
--- NOTE | 2018-12-27 20:12 | EKG REPORT ---
SEVERITY:- ABNORMAL ECG - ATRIAL FIBRILLATION ABNORMAL T, CONSIDER ISCHEMIA, LATERAL LEADS BORDERLINE PROLONGED QT INTERVAL : Confirmed by: Ronni Rock 27-Dec-2018 20:12:39
--- NOTE | 2018-12-27 23:16 | Progress Note ---
Provider Note Provider Note: CARDIOLOGY PROGRESS NOTE by Dr. Cecy Clark on 12/27/2018. SUBJECTIVE: The patient continues to be in atrial fibrillation. The trial of trying to convert him to sinus rhythm with sotalol was not successful. His rate at present seems to be controlled. We will stop the patient's IV Cardizem and switch the patient to Cardizem p.o. at 180 mg p.o. every 12 hours and increase as tolerated. The patient denies any chest pain or discomfort. There is no PND orthopnea or leg edema. The patient most likely has sleep apnea, but he has not had a sleep test. There is no chest pain or discomfort. There is no bleeding on Eliquis. There is no TIA CVA symptoms. There is no leg edema. There is no ventricular arrhythmia seen on the monitor. Selected Entries 12/27/18 07:45 Temperature 97.9 F Temperature Oral Source Pulse Rate 71 Respiratory 17 Rate Blood Pressure 118/73 Blood Pressure 88 Mean BP Location Right Arm BP Position Supine O2 Sat by Pulse 100 Oximetry Oxygen Delivery Room Air Method HEAD: Is atraumatic normocephalic. EYES: Pupils equal round regular reactive to light accommodation. Extra ocular movements are normal. There is no conjunctival pallor. There is no scleral icterus. EARS: Tympanic memories are intact. External auditory canals are clear. NOSE: There is no deviated nasal septum. There is no inflammation of the nasal mucous membrane. MOUTH: Mucous membranes of mouth are moist. There is no ulcers in the mouth. There is no bl eeding from the gums. THROAT: There is no redness of the oropharynx. There is no exudates. SKIN: There is no skin rashes or skin lesions. There is no petechia or ecchymosis. NECK: Is supple. There is no JVD. Carotids are equal there is no bruit. There is no lymphadenopathy. There is no goiter. There is no accessory muscles of respiration use. Trachea central. LUNGS: Is clear to auscultation percussion, without any rhonchi rales or wheezing. On palpation there is no chest wall tenderness. HEART: S1-S2 is heard. S1 is of variable intensity. There is no S3 gallop. There is no S4 gallop. There is systolic murmur left sternal border and the apex. There is no rub ABDOMEN: Is obese. There is no hepatosplenomegaly. Bowel sounds are well heard. There is no tender areas masses. EXTREMITIES: Femorals are diminished. Femorals are deep. There is no femoral bruits. Leg pulses are mildly diminished. There is no pedal edema. There is no DVT or cellulitis. There is no calf tenderness. 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 PSYCHIATRIC: The patient judgment and insight are intact his affect is normal. 12/27/18 12/27/18 12/27/18 06:08 06:08 06:08 WBC 6.8 RBC 4.47 Hgb 13.4 L Hct 39.0 MCV 87 MCH 30.0 MCHC 34.4 RDW 14.5 H Plt Count 342 Sodium 137.8 Potassium 3.7 Chloride 103 Carbon Dioxide 26 Anion Gap 9 BUN 16 Creatinine 0.84 Est GFR (Non-Af Amer) > 60 Glucose 177 H Calcium 9.3 Magnesium 1.9 NT-Pro-B Natriuret Pep 926 H IMPRESSION/RECOMMENDATION: 1. Elevated Troponin: This is due to type 2 DC (Supply demand mismatch and not a NSTEMI. 2. Persistent atrial fibrillation: At present heart rate seems to be better. We will stop the patient's IV Cardizem drip. Start the patient on Cardizem CD 180 mg p.o. every 12 hours and increase as tolerated. The patient's corrected Luis vas 2 score is 2, and hence we will continue the patient on chronic anticoagulant therapy with Eliquis. The patient has no problems so far with Eliquis. Note the patient's sotalol has been discontinued, since this note did not convert the patient to sinus rhythm. 3. Hypertension: Blood pressure at times did seem to be high. The patient will be started on Cozaar which has been later increased to Cozaar 50 mg p.o. every 12 hours. 4. Diabetes mellitus, continue antidiabetic treatment and monitor blood sugars. 5. Morbid obesity: Later would recommend the patient address this issue with weight loss losing measures. 6. Symptoms suggestive of sleep apnea: Would recommend a sleep study as an outpatient. Medications reviewed. Medications adjusted and new medications added. Medical decision making is of high complexity. 40 minutes spent on this patient with more than 50% of time spent in direct patient care. Discussed the case with Dr. Andrew was covering Dr. Sy. 40 minutes spent on this patient with more than 50% of time spent in direct patient care. The patient is a full code. Guzman Jenny Camarena is his surrogate healthcare decision maker.
[2018-12-28] MEDS: LANSOPRAZOLE 15 MG TAB.RAP.DR PO SCH ×2 (05:00→16:41)
[2018-12-28 07:12] LABS: ABSOLUTE EOSINOPHILS # (AUTO) 0.2 10^3/uL (0.0-0.6); ABSOLUTE LYMPHOCYTES (AUTO) 2.6 10^3/uL (0.5-4.7); ABSOLUTE MONOCYTES (AUTO) 0.7 10^3/uL (0.1-1.4); ABSOLUTE NEUT (AUTO) 3.5 10^3/uL (1.7-8.2); BASOPHILS % (AUTO) 0.5 % (0-2); EOSINOPHILS % (AUTO) 2.2 % (0-6); HEMATOCRIT 41.8 % (37.9-51.0); HEMOGLOBIN 14.2 g/dL (13.5-17.0); LYMPHOCYTES % (AUTO) 37.8 % (13-45); MEAN CORPUSCULAR HEMOGLOBIN 29.5 pg (27.0-33.4); MEAN CORPUSCULAR VOLUME 87 fl (80-97); MONOCYTES % (AUTO) 9.4 % (3-13); PLATELET COUNT 345 10^3/uL (150-450); RED BLOOD COUNT 4.81 10^6/uL (4.35-5.55); RED CELL DISTRIBUTION WIDTH 14.6 % (11.5-14.0); SEGMENTED NEUTROPHILS % (AUTO) 50.1 % (42-78); TOTAL CELLS COUNTED % (AUTO) 100 %
[2018-12-28 07:34] LABS: ANION GAP 11 (5-19); BLOOD UREA NITROGEN 14 mg/dL (7-20); CALCIUM 9.2 mg/dL (8.4-10.2); CARBON DIOXIDE 27 mmol/L (22-30); CHLORIDE 102 mmol/L (98-107); GLUCOSE 152 mg/dL (75-110); POTASSIUM 3.8 mmol/L (3.6-5.0); SODIUM 140.2 mmol/L (137-145)
[2018-12-28] MEDS: INSULIN REG, HUMAN 100 UNIT/ML 3 ML VIAL (PYX) SUBCUT SCH ×4 (08:54→21:12)
[2018-12-28] MEDS ORDERED: DIGOXIN INJ 0.5 MG/2 ML AMPULE ONE (09:28)
[2018-12-28] MEDS: APIXABAN 5 MG TABLET PO SCH ×2 (09:30→17:23)
[2018-12-28] MEDS: LOSARTAN POTASSIUM 50 MG TABLET PO SCH ×2 (09:30→21:12)
[2018-12-28] MEDS ORDERED: DIGOXIN INJ 0.5 MG/2 ML AMPULE IV ONE (10:00)
[2018-12-28] MEDS: DILTIAZEM HCL 240 MG CAPSULE.CR PO SCH ×2 (10:37→21:12)
--- NOTE | 2018-12-28 14:39 | PDOC PROGRESS REPORT ---
Subjective Progress Note for:: 12/28/18 Subjective:: Patient seen by the bedside he has no new complaints, the sotalol was discontinued yesterday because there was no successful cardioversion to sinus rhythm from A. fib Reason For Visit: CHEST PAIN,NEW ONSET AFIB Physical Exam Vital Signs: Temp Pulse Resp BP Pulse Ox 98.6 F 103 H 18 152/89 H 100 12/28/18 11:39 12/28/18 11:39 12/28/18 11:39 12/28/18 11:39 12/28/18 11:39 Intake & Output 12/27/18 12/28/18 12/29/18 06:59 06:59 06:59 Intake Total 1224 894 Output Total 775 Balance 1224 119 Weight 145.4 kg 315.8 kg General appearance: PRESENT: no acute distress Head exam: PRESENT: atraumatic, normocephalic Eye exam: PRESENT: PERRLA Ear exam: PRESENT: normal external ear exam Neck exam: PRESENT: full ROM Respiratory exam: PRESENT: clear to auscultation bry Cardiovascular exam: PRESENT: RRR, +S1, +S2 Pulses: PRESENT: normal dorsalis pedis pul, +2 pedal pulses bilateral Vascular exam: PRESENT: normal capillary refill GI/Abdominal exam: PRESENT: normal bowel sounds, soft Rectal exam: PRESENT: deferred Neurological exam: PRESENT: alert, CN II-XII grossly intact Psychiatric exam: PRESENT: appropriate affect, normal mood Skin exam: PRESENT: dry, intact, warm Results Laboratory Results: 12/28/18 05:59 12/28/18 05:59 12/28/18 12/28/18 05:59 05:59 WBC 7.0 RBC 4.81 Hgb 14.2 Hct 41.8 MCV 87 MCH 29.5 MCHC 34.0 RDW 14.6 H Plt Count 345 Seg Neutrophils % 50.1 Lymphocytes % 37.8 Monocytes % 9.4 Eosinophils % 2.2 Basophils % 0.5 Absolute Neutrophils 3.5 Absolute Lymphocytes 2.6 Absolute Monocytes 0.7 Absolute Eosinophils 0.2 Absolute Basophils 0.0 Sodium 140.2 Potassium 3.8 Chloride 102 Carbon Dioxide 27 Anion Gap 11 BUN 14 Creatinine 0.88 Est GFR ( Amer) > 60 Est GFR (Non-Af Amer) > 60 Glucose 152 H Calcium 9.2 Magnesium 2.0 12/25/18 12/25/18 12/25/18 08:48 08:48 13:00 Creatine Kinase 73 CK-MB (CK-2) 1.60 Troponin I 0.049 0.088 NT-Pro-B Natriuret Pep 12/25/18 12/25/18 12/25/18 13:00 13:00 19:40 Creatine Kinase 64 71 CK-MB (CK-2) 2.20 Troponin I Cancelled NT-Pro-B Natriuret Pep 12/25/18 12/26/18 12/26/18 19:40 01:50 01:50 Creatine Kinase 63 CK-MB (CK-2) 2.22 1.82 Troponin I 0.144 0.134 NT-Pro-B Natriuret Pep 12/26/18 12/26/18 12/26/18 01:50 08:25 08:25 Creatine Kinase 60 CK-MB (CK-2) 1.85 Troponin I 0.096 NT-Pro-B Natriuret Pep 715 H 12/27/18 12/28/18 06:08 05:59 Creatine Kinase CK-MB (CK-2) Troponin I NT-Pro-B Natriuret Pep 926 H 614 H Impressions: Chest/Abdomen CTA 12/25/18 00:00 IMPRESSION: NORMAL CTA OF THE CHEST. NO PULMONARY EMBOLI. Chest X-Ray 12/25/18 08:50 IMPRESSION: Cardiomegaly without acute abnormality of the lungs in AP projection. Assessment & Plan - Diagnosis (1) Atrial fibrillation with rapid ventricular response Is this a current diagnosis for this admission?: Yes Plan: Continue present AV node blockade, anticoagulant with Eliquis (2) Chest pain Qualifiers: Chest pain type: unspecified Qualified Code(s): R07.9 - Chest pain, unspecified Is this a current diagnosis for this admission?: Yes (3) Elevated troponin Is this a current diagnosis for this admission?: Yes (4) Hypertension Qualifiers: Hypertension type: essential hypertension Qualified Code(s): I10 - Essential (primary) hypertension Is this a current diagnosis for this admission?: Yes (5) Type 2 diabetes mellitus Qualifiers: Diabetes mellitus long chain beamer insulin use: without snf use Diabetes mellitus complication status: without complication Qualified Code(s): E11.9 - Type 2 diabetes mellitus without complications Is this a current diagnosis for this admission?: Yes
--- NOTE | 2018-12-28 22:19 | Progress Note ---
Provider Note Provider Note: CARDIOLOGY PROGRESS NOTE by Dr. Cecy Clark on 12/28/2018. SUBJECTIVE: The patient continues to be in atrial fibrillation. He denies any chest pain or discomfort. There is no PND orthopnea. His heart rate was high and hence the patient was given digoxin 0.25 mg IV push x1, and is Cardizem CD was increased to 40 mg every 12 hours, and his Cardizem drip was discontinued. His heart rate is remained stable. He denies any PND orthopnea. There is no leg edema. There is no bleeding on Eliquis. There is no TIA CVA symptoms. PHYSICAL EXAMINATION: The patient is morbidly obese. He is well-groomed. He is in no acute distress. Selected Entries 12/28/18 11:39 Temperature 98.6 F Temperature Oral Source Pulse Rate 103 H Respiratory 18 Rate Blood Pressure 152/89 H Blood Pressure 110 Mean BP Location Right Arm BP Position Sitting O2 Sat by Pulse 100 Oximetry Oxygen Delivery Room Air Method HEAD: Is atraumatic normocephalic. EYES: Pupils equal round regular reactive to light accommodation. Extra ocular movements are normal. There is no conjunctival pallor. There is no scleral icterus. EARS: Tympanic memories are intact. External auditory canals are clear. NOSE: There is no deviated nasal septum. There is no inflammation of the nasal mucous membrane. MOUTH: Mucous membranes of mouth are moist. There is no ulcers in the mouth. There is no bleeding from the gums. THROAT: There is no redness of the oropharynx. There is no exudates. SKIN: There is no skin rashes or skin lesions. There is no petechia or ecchymosis. NECK: Is supple. There is no JVD. Carotids are equal there is no bruit. There is no lymphadenopathy. There is no goiter. There is no accessory muscles of respiration use. Trachea central. LUNGS: Is clear to auscultation percussion, without any rhonchi rales or wheezing. On palpation there is no chest wall tenderness. HEART: S1-S2 is heard. S1 is of variable intensity. There is no S3 gallop. There is no S4 gallop. There is systolic murmur left sternal border and the apex. There is no rub ABDOMEN: Is obese. There is no hepatosplenomegaly. Bowel sounds are well heard. There is no tender areas masses. EXTREMITIES: Femorals are diminished. Femorals are deep. There is no femoral bruits. Leg pulses are mildly diminished. There is no pedal edema. There is no DVT or cellulitis. There is no calf tenderness. 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 PSYCHIATRIC: The patient judgment and insight are intact his affect is normal. 12/28/18 12/28/18 12/28/18 05:59 05:59 05:59 WBC 7.0 RBC 4.81 Hgb 14.2 Hct 41.8 MCV 87 MCH 29.5 MCHC 34.0 RDW 14.6 H Plt Count 345 Seg Neutrophils % 50.1 Sodium 140.2 Potassium 3.8 Chloride 102 Carbon Dioxide 27 Anion Gap 11 BUN 14 Creatinine 0.88 Est GFR (Non-Af Amer) > 60 Glucose 152 H Calcium 9.2 Magnesium 2.0 NT-Pro-B Natriuret Pep 614 H IMPRESSION/RECOMMENDATION: 1. Elevated troponin I: Mostly secondary to type II CA [supply demand mismatch, and not a non-ST elevation CA. This is due to the patient's atrial fibrillation with rapid ventricular response. 2. Persistent atrial fibrillation: At present heart rate seems to be better. We will stop the patient's IV Cardizem drip. Increase the patient on Cardizem CD 240 mg p.o. every 12 hours and increase as tolerated. Will add digoxin 0.25 mg p.o. Will continue the patient on chronic anticoagulant therapy with Eliquis. The patient has no problems so far with Eliquis. Note the patient's sotalol has been discontinued, since this note did not convert the patient to sinus rhythm. 3. Hypertension: Blood pressure at times did seem to be high. The patient will be started on Cozaar which has been later increased to Cozaar 50 mg p.o. every 12 hours. 4. Diabetes mellitus, continue antidiabetic treatment and monitor blood sugars. 5.. Morbid obesity: Later would recommend the patient address this issue with weight loss losing measures. 6. Symptoms suggestive of sleep apnea: Would recommend a sleep study as an outpatient. 7. Multiple CAD risk factors namely age, hypertension, and diabetes mellitus. Will make sure that the patient's heart rate and blood sugar and blood pressure well controlled prior to subjecting the patient with IV Lexiscan Cardiolite stress test. Would recommend that the patient have an outpatient IV Lexiscan Cardiolite, also outpatient echocardiogram, and a outpatient 30-day event monitor. This has been discussed with the patient. Will check the patient's dig level in the morning. Medications reviewed. Medications adjusted and new medications added. Medical decision making is of high complexity. 40 minutes spent on this patient with more than 50% of time spent in direct patient care. Discussed the case with Dr. Andrew was covering Dr. Sy. 40 minutes spent on this patient with more than 50% of time spent in direct patient care. The patient is a full code. Ms. Jenny Camarena is his surrogate healthcare decision maker.
[2018-12-29] MEDS: LANSOPRAZOLE 15 MG TAB.RAP.DR PO SCH ×2 (05:41→17:04)
[2018-12-29] MEDS: INSULIN REG, HUMAN 100 UNIT/ML 3 ML VIAL (PYX) SUBCUT SCH ×4 (07:45→21:29)
--- NOTE | 2018-12-29 08:38 | PDOC PROGRESS REPORT ---
Subjective Progress Note for:: 12/29/18 Subjective:: Patient is currently on a Cardizem p.o. and a digoxin Currently doing well Patient unable to convert the sinus rhythm Patient is currently on Eliquis Denied any chest pain to than any shortness of the breath Reason For Visit: CHEST PAIN,NEW ONSET AFIB Physical Exam Vital Signs: Temp Pulse Resp BP Pulse Ox 97.8 F 92 20 146/93 H 99 12/29/18 04:06 12/29/18 07:00 12/29/18 04:06 12/29/18 04:06 12/29/18 04:06 Intake & Output 12/28/18 12/29/18 12/30/18 06:59 06:59 06:59 Intake Total 894 694 Output Total 775 Balance 119 694 Weight 315.8 kg 314.9 kg General appearance: PRESENT: no acute distress, well-developed, well-nourished Head exam: PRESENT: atraumatic, normocephalic Eye exam: PRESENT: conjunctiva pink, EOMI, PERRLA. ABSENT: scleral icterus Ear exam: PRESENT: normal external ear exam Mouth exam: PRESENT: moist, tongue midline Neck exam: PRESENT: full ROM. ABSENT: carotid bruit, JVD, lymphadenopathy, thyromegaly Respiratory exam: PRESENT: clear to auscultation bry Cardiovascular exam: PRESENT: irregular rhythm. ABSENT: diastolic murmur, rubs, systolic murmur Vascular exam: PRESENT: normal capillary refill GI/Abdominal exam: PRESENT: normal bowel sounds, soft. ABSENT: distended, guarding, mass, organolmegaly, rebound, tenderness Rectal exam: PRESENT: deferred Musculoskeletal exam: PRESENT: ambulatory Neurological exam: PRESENT: alert, awake, oriented to person, oriented to place, oriented to time, oriented to situation, CN II-XII grossly intact. ABSENT: motor sensory deficit Psychiatric exam: PRESENT: appropriate affect, normal mood. ABSENT: homicidal ideation, suicidal ideation Skin exam: PRESENT: dry, intact, warm. ABSENT: cyanosis, rash Results Laboratory Results: 12/28/18 05:59 12/28/18 05:59 12/28/18 23:21 Stool Occult Blood NEGATIVE 12/25/18 12/25/18 12/25/18 08:48 08:48 13:00 Creatine Kinase 73 CK-MB (CK-2) 1.60 Troponin I 0.049 0.088 NT-Pro-B Natriuret Pep 12/25/18 12/25/18 12/25/18 13:00 13:00 19:40 Creatine Kinase 64 71 CK-MB (CK-2) 2.20 Troponin I Cancelled NT-Pro-B Natriuret Pep 12/25/18 12/26/18 12/26/18 19:40 01:50 01:50 Creatine Kinase 63 CK-MB (CK-2) 2.22 1.82 Troponin I 0.144 0.134 NT-Pro-B Natriuret Pep 12/26/18 12/26/18 12/26/18 01:50 08:25 08:25 Creatine Kinase 60 CK-MB (CK-2) 1.85 Troponin I 0.096 NT-Pro-B Natriuret Pep 715 H 12/27/18 12/28/18 06:08 05:59 Creatine Kinase CK-MB (CK-2) Troponin I NT-Pro-B Natriuret Pep 926 H 614 H Impressions: Chest/Abdomen CTA 12/25/18 00:00 IMPRESSION: NORMAL CTA OF THE CHEST. NO PULMONARY EMBOLI. Chest X-Ray 12/25/18 08:50 IMPRESSION: Cardiomegaly without acute abnormality of the lungs in AP projection. Assessment & Plan - Diagnosis (1) Atrial fibrillation with rapid ventricular response Is this a current diagnosis for this admission?: Yes Plan: on to [facility]chell Rothman and Richelle (2) Chest pain Qualifiers: Chest pain type: unspecified Qualified Code(s): R07.9 - Chest pain, unspecified Is this a current diagnosis for this admission?: Yes Plan: Currently all stable (3) Hypertension Qualifiers: Hypertension type: essential hypertension Qualified Code(s): I10 - Essential (primary) hypertension Is this a current diagnosis for this admission?: Yes (4) Elevated troponin Is this a current diagnosis for this admission?: Yes (5) Type 2 diabetes mellitus Qualifiers: Diabetes mellitus long-term insulin use: without long-term use Diabetes mellitus complication status: without complication Qualified Code(s): E11.9 - Type 2 diabetes mellitus without complications Is this a current diagnosis for this admission?: Yes Plan: start ss with [facility] - Time Time Spent with patient: 15-24 minutes Medications reviewed and adjusted accordingly: Yes Anticipated discharge: Home Within: within 24 hours - Plan Summary Plan Summary: Discussed with the cardiology patient's ambulatory today and if he remains stable discharge in the morning patients need a sleep study as outpatient
[2018-12-29] MEDS: DILTIAZEM HCL 240 MG CAPSULE.CR PO SCH ×2 (09:15→21:23)
[2018-12-29] MEDS: LOSARTAN POTASSIUM 50 MG TABLET PO SCH (09:15)
[2018-12-29] MEDS: APIXABAN 5 MG TABLET PO SCH ×2 (09:15→17:04)
[2018-12-29] MEDS ORDERED: DIGOXIN INJ 0.5 MG/2 ML AMPULE IV ONE (10:28)
[2018-12-29] MEDS: LISINOPRIL 10 MG TABLET PO SCH ×2 (11:36→21:23)
--- NOTE | 2018-12-29 21:10 | Progress Note ---
Provider Note Provider Note: CARDIOLOGY PROGRESS NOTE by Dr. Cecy Clark on 12/29/2018. The patient continues to be in atrial fibrillation. Although his heart rate at rest is controlled, when he walks his heart rate goes up to the 130s to the 150s, with the patient being asymptomatic. The patient denies any chest pain or discomfort. There is no palpitations. There is no PND orthopnea or leg edema. There is no bleeding on Eliquis. There is no TIA CVA symptoms. PHYSICAL EXAMINATION: The patient is morbidly obese. He is well-groomed in no acute distress. Selected Entries 12/29/18 08:17 Temperature 97.8 F Temperature Oral Source Pulse Rate 82 Respiratory 18 Rate Blood Pressure 141/77 H Blood Pressure 98 Mean BP Location Right Arm BP Position Sitting O2 Sat by Pulse 100 Oximetry Oxygen Delivery Room Air Method HEAD: Is atraumatic normocephalic. EYES: Pupils equal round regular reactive to light accommodation. Extra ocular movements are normal. There is no conjunctival pallor. There is no scleral icterus. EARS: Tympanic memories are intact. External auditory canals are clear. NOSE: There is no deviated nasal septum. There is no inflammation of the nasal mucous membrane. MOUTH: Mucous membranes of mouth are moist. There is no ulcers in the mouth. There is no bleeding from the gums. THROAT: There is no redness of the oropharynx. There is no exudates. SKIN: There is no skin rashes or skin lesions. There is no petechia or ecchymosis. NECK: Is supple. There is no JVD. Carotids are equal there is no bruit. There is no lymphadenopathy. There is no goiter. There is no accessory muscles of respiration use. Trachea central. LUNGS: Is clear to auscultation percussion, without any rhonchi rales or wheezing. On palpation there is no chest wall tenderness. HEART: S1-S2 is heard. S1 is of variable intensity. There is no S3 gallop. There is no S4 gallop. There is systolic murmur left sternal border and the apex. There is no rub ABDOMEN: Is obese. There is no hepatosplenomegaly. Bowel sounds are well heard. There is no tender areas masses. EXTREMITIES: Femorals are diminished. Femorals are deep. There is no femoral bruits. Leg pulses are mildly diminished. There is no pedal edema. There is no DVT or cellulitis. There is no calf tenderness. 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 12/29/18 12/29/18 05:42 11:27 POC Glucose 163 H 218 H IMPRESSION/RECOMMENDATION: 1. Elevated troponin I: Mostly secondary to type II OH [supply demand mismatch, and not a non-ST elevation OH. This is due to the patient's atrial fibrillation with rapid ventricular response. 2. Persistent atrial fibrillation: At present heart rate seems to be better. We will stop the patient's IV Cardizem drip. Increase the patient on Cardizem CD 240 mg p.o. every 12 hours and increase as tolerated. Will add digoxin 0.25 mg p.o. Will continue the patient on chronic anticoagulant therapy with Eliquis. The patient has no problems so far with Eliquis. Note the patient's sotalol has been discontinued, since this note did not convert the patient to sinus rhythm. We will recheck the patient's dig level in the a.m. 3. Hypertension: Blood pressure at times did seem to be high. The patient will be started on Cozaar which has been later increased to Cozaar 50 mg p.o. every 12 hours. 4. Diabetes mellitus, continue antidiabetic treatment and monitor blood sugars. 5.. Morbid obesity: Later would recommend the patient address this issue with weight loss losing measures. 6. Symptoms suggestive of sleep apnea: Would recommend a sleep study as an outpatient. 7. Multiple CAD risk factors namely age, hypertension, and diabetes mellitus. Will make sure that the patient's heart rate and blood sugar and blood pressure are all well controlled, prior to subjecting the patient to a IV Lexiscan Cardiolite stress test. Would recommend that the patient have an outpatient IV Lexiscan Cardiolite, also outpatient echocardiogram, and a outpatient 30-day event monitor. This has been discussed with the patient. Will check the patient's dig level in the morning. Medications reviewed. Medications adjusted and new medications added. Medical decision making is of high complexity. 40 minutes spent on this patient with more than 50% of time spent in direct patient care. Discussed the case with Dr. Sy. 40 minutes spent on this patient with more than 50% of time spent in direct patient care. The patient is a full code. Ms. Jenny Camarena is his surrogate healthcare decision maker.
[2018-12-30] MEDS: LANSOPRAZOLE 15 MG TAB.RAP.DR PO SCH (05:51)
[2018-12-30] MEDS: INSULIN REG, HUMAN 100 UNIT/ML 3 ML VIAL (PYX) SUBCUT SCH (07:30)
[2018-12-30] MEDS ORDERED: ATENOLOL 50 MG TABLET PO ONE (09:00)
[2018-12-30] MEDS ORDERED: DIGOXIN INJ 0.5 MG/2 ML AMPULE IV ONE (09:00)
[2018-12-30] MEDS: APIXABAN 5 MG TABLET PO SCH (09:29)
[2018-12-30] MEDS: LISINOPRIL 10 MG TABLET PO SCH (09:29)
[2018-12-30] MEDS: DILTIAZEM HCL 240 MG CAPSULE.CR PO SCH (09:31)
[2018-12-30] MEDS ORDERED: DIGOXIN 0.125 MG TABLET PO SCH ×2 (10:00)
[2018-12-30 11:50] VITALS: BP 100/73
--- NOTE | 2018-12-30 13:14 | PDOC DISCHARGE SUMMARY ---
General - Admit/Disc Date/PCP Admission Date/Primary Care Provider: 12/25/18 10:08 KENDAL MILLER MD Discharge Date: 12/30/18 - Discharge Diagnosis (1) Atrial fibrillation with rapid ventricular response Is this a current diagnosis for this admission?: Yes Summary: Currently on a Cardizem and atenolol and Eliquis follow outpatients Dr. Price (2) Chest pain Is this a current diagnosis for this admission?: Yes Summary: Currently all resolved as per traffic routing engineer Dr. Clark follow-up outpatient stress test and echocardiogram (3) Hypertension Is this a current diagnosis for this admission?: Yes Summary: Current medications (4) Elevated troponin Is this a current diagnosis for this admission?: Yes Summary: According to the traffic routing engineer due to the rapid ventricular response no sign of any acute coronary syndromes follow outpatient stress test (5) Type 2 diabetes mellitus Is this a current diagnosis for this admission?: Yes Summary: Continues metformin - Additional Information Discharge Diet: Cardiac Discharge Activity: Activity As Tolerated Prescriptions: Apixaban [Eliquis 5 mg Tablet] 5 mg PO BID #60 tablet Atenolol [Tenormin] 25 mg PO DAILY #30 tablet Digoxin [Lanoxin 0.125 mg Tablet] 0.25 mg PO DAILY #30 tablet Diltiazem HCl [Cardizem Cd 240 mg Capsule.cr] 240 mg PO Q12 #60 capsule.cr Lisinopril [Prinivil 10 mg Tablet] 40 mg PO Q12 #60 tablet Home Medications: Metformin HCl [Metformin HCl ER] 500 mg PO DAILY 12/25/18 Apixaban [Eliquis 5 mg Tablet] 5 mg PO BID #60 tablet 12/30/18 Atenolol [Tenormin] 25 mg PO DAILY #30 tablet 12/30/18 Digoxin [Lanoxin 0.125 mg Tablet] 0.25 mg PO DAILY #30 tablet 12/30/18 Diltiazem HCl [Cardizem Cd 240 mg Capsule.cr] 240 mg PO Q12 #60 capsule.cr 12/30/18 Lisinopril [Prinivil 10 mg Tablet] 40 mg PO Q12 #60 tablet 12/30/18 History of Present Illness History of Present Illness: JM OSUNA is a 48 year old male This is a 48-year-old male with a history of the hypertension came to the emergency department with a complaining of chest pain and palpitations and shortness of the breath with exertions started the last couple of days and feeling worse In the emergency department patient's found the atrial fibrillation's with a rapid ventricular response and patient received a Cardizem bolus and put on a Cardizem drip Patient also received a Lovenox injections Patients to have a new onset of A. fib never had a history of the A. fib in the past Patient had a history of the high blood pressure Patient is denied any alcohol Patient's when I saw in the floor the heart rate is under control Patient is denied any chest pain Patient CT angiogram is also negative pt took otc cold med 3 days Hospital Course Hospital Course: This is a 48-year-old male presenting the emergency department with a complaining of chest pains with a rapid ventricular response and A. fib patient admitting in the IMCU Start the patient on a Cardizem drip consult Dr. Teixeira Patient's was switched to the p.o. Cardizem Patient heart rate was still running high when patients walk and Dr. Clark start on a digoxin and add atenolol 25 mg Patient's otherwise remained asymptomatic Patient CT angiogram was also negative Patient's blood work is all stable Patient's walk in the hallway without any problems Patient is also need a sleep study as outpatient we will schedule it As per discussed with the Dr. Clark no need for any stress test and echocardiogram while patient in the hospital he will schedule as outpatient in his office Very extensive discussed with the patient and the family regarding the patient's current conditions Will continues close monitoring outpatients Physical Exam Vital Signs: Temp Pulse Resp BP Pulse Ox 98.4 F 63 18 150/127 H 99 12/30/18 11:10 12/30/18 11:10 12/30/18 11:10 12/30/18 11:10 12/30/18 11:10 Intake & Output 12/29/18 12/30/18 12/31/18 06:59 06:59 06:59 Intake Total 694 1125 Balance 694 1125 Weight 314.9 kg 141.1 kg General appearance: PRESENT: no acute distress, well-developed, well-nourished Head exam: PRESENT: atraumatic, normocephalic Eye exam: PRESENT: conjunctiva pink, EOMI, PERRLA. ABSENT: scleral icterus Ear exam: PRESENT: normal external ear exam Mouth exam: PRESENT: moist, tongue midline Neck exam: PRESENT: full ROM. ABSENT: carotid bruit, JVD, lymphadenopathy, thyromegaly Respiratory exam: PRESENT: clear to auscultation bry Cardiovascular exam: PRESENT: RRR. ABSENT: diastolic murmur, rubs, systolic murmur Pulses: PRESENT: normal dorsalis pedis pul, +2 pedal pulses bilateral Vascular exam: PRESENT: normal capillary refill GI/Abdominal exam: PRESENT: normal bowel sounds, soft. ABSENT: distended, guard ing, mass, organolmegaly, rebound, tenderness Rectal exam: PRESENT: deferred Musculoskeletal exam: PRESENT: ambulatory Neurological exam: PRESENT: alert, awake, oriented to person, oriented to place, oriented to time, oriented to situation, CN II-XII grossly intact. ABSENT: motor sensory deficit Psychiatric exam: PRESENT: appropriate affect, normal mood. ABSENT: homicidal ideation, suicidal ideation Skin exam: PRESENT: dry, intact, warm. ABSENT: cyanosis, rash Results Laboratory Results: 12/28/18 05:59 12/28/18 05:59 12/25/18 12/25/18 12/25/18 08:48 08:48 13:00 Creatine Kinase 73 CK-MB (CK-2) 1.60 Troponin I 0.049 0.088 NT-Pro-B Natriuret Pep 12/25/18 12/25/18 12/25/18 13:00 13:00 19:40 Creatine Kinase 64 71 CK-MB (CK-2) 2.20 Troponin I Cancelled NT-Pro-B Natriuret Pep 12/25/18 12/26/18 12/26/18 19:40 01:50 01:50 Creatine Kinase 63 CK-MB (CK-2) 2.22 1.82 Troponin I 0.144 0.134 NT-Pro-B Natriuret Pep 12/26/18 12/26/18 12/26/18 01:50 08:25 08:25 Creatine Kinase 60 CK-MB (CK-2) 1.85 Troponin I 0.096 NT-Pro-B Natriuret Pep 715 H 12/27/18 12/28/18 06:08 05:59 Creatine Kinase CK-MB (CK-2) Troponin I NT-Pro-B Natriuret Pep 926 H 614 H Impressions: Chest/Abdomen CTA 12/25/18 00:00 IMPRESSION: NORMAL CTA OF THE CHEST. NO PULMONARY EMBOLI. Chest X-Ray 12/25/18 08:50 IMPRESSION: Cardiomegaly without acute abnormality of the lungs in AP projection. Qualifiers - * PATIENT BEING DISCHARGED WITH ANY OF THE FOLLOWING DIAGNOSIS: No VTE patient discharged on overlapping Therapy?: Yes Plan Time Spent: Greater than 30 Minutes - Cardiology as already appointment made by Dr. Teixeira for a stress test and echocardiogram and a Holter monitor Patients also seen in the office in 1 week we will schedule the sleep study Discussed with the patient about Eliquis and a fall precautions patient understands about the Eliquis and the side effect Patient's friend to chemical cardioversion with the sotalol and cardiology decided to put in a great control and Eliquis
--- NOTE | 2018-12-30 23:19 | Progress Note ---
Provider Note Provider Note: CARDIOLOGY PROGRESS NOTE by Dr. Cecy Perez on 12/30/2018. SUBJECTIVE: The patient continues to be in atrial fibrillation. At rest his heart rate is controlled. With the patient now being on digoxin, Cardizem CD and with the addition of a small dose of beta-stacia on ambulation his heart rate goes up into the 100 bpm and not like before in the 130s-140s. The patient has no symptoms of any ambulates. He denies any chest pain or discomfort. There is no dizziness, near-syncope or syncope. There is no shortness of breath or PND orthopnea. There is no leg edema. There is no bleeding on Eliquis. There is no TIA CVA symptoms. PHYSICAL EXAMINATION: The patient is morbidly obese. He is well-groomed. He is in no acute distress. Selected Entries 12/30/18 12/30/18 12/30/18 11:07 11:10 11:12 Temperature 98.6 F 98.4 F Pulse Rate 77 63 Respiratory 18 Rate Blood Pressure 100/73 Blood Pressure 152/84 H [Right Upper Arm] Blood Pressure 82 Mean O2 Sat by Pulse 99 Oximetry Fraction of 21 Inspired Oxygen (FIO2) HEAD: Is atraumatic normocephalic. EYES: Pupils equal round regular reactive to light accommodation. Extra ocular movements are normal. There is no conjunctival pallor. There is no scleral icterus. EARS: Tympanic memories are intact. External auditory canals are clear. NOSE: There is no deviated nasal septum. There is no inflammation of the nasal mucous membrane. MOUTH: Mucous membranes of mouth are moist. There is no ulcers in the mouth. There is no bleeding from the gums. THROAT: There is no redness of the oropharynx. There is no exudates. SKIN: There is no skin rashes or skin lesions. There is no p etechia or ecchymosis. NECK: Is supple. There is no JVD. Carotids are equal there is no bruit. There is no lymphadenopathy. There is no goiter. There is no accessory muscles of respiration use. Trachea central. LUNGS: Is clear to auscultation percussion, without any rhonchi rales or wheezing. On palpation there is no chest wall tenderness. HEART: S1-S2 is heard. S1 is of variable intensity. There is no S3 gallop. There is no S4 gallop. There is systolic murmur left sternal border and the apex. There is no rub ABDOMEN: Is obese. There is no hepatosplenomegaly. Bowel sounds are well heard. There is no tender areas masses. EXTREMITIES: Femorals are diminished. Femorals are deep. There is no femoral bruits. Leg pulses are mildly diminished. There is no pedal edema. There is no DVT or cellulitis. There is no calf tenderness. 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 Elevated troponin I: Mostly secondary to type II PA [supply demand mismatch, and not a non-ST elevation PA. This is due to the patient's atrial fibrillation with rapid ventricular response. This is trended down. 2. Persistent atrial fibrillation: At present heart rate seems to be controlled. Recommend continuing Cardizem CD 240 mg p.o. every 12 hours, and continue digoxin 0.25 mg p.o. Will continue the patient on chronic anticoagulant therapy with Eliquis. Will add a small dose of beta-stacia also. The patient has no problems so far with Eliquis. The patient did level this morning was 0.98., Which is low normal. 3. Hypertension: Blood pressure at times did seem to be high. The patient will be placed back on his portable, but will increase it to 40 mg p.o. every 12 hours. 4. Diabetes mellitus, continue antidiabetic treatment and monitor blood sugars. 5.. Morbid obesity: Later would recommend the patient address this issue with weight loss losing measures. 6. Symptoms suggestive of sleep apnea: Would recommend a sleep study as an outpatient. 7. Multiple CAD risk factors namely age, hypertension, and diabetes mellitus. Will make sure that the patient's heart rate and blood sugar and blood pressure are all well controlled, prior to subjecting the patient to a IV Lexiscan Cardiolite stress test. Would recommend that the patient have an outpatient IV Lexiscan Cardiolite, also outpatient echocardiogram, and a outpatient 30-day event monitor. Also the patient would be recommended to have an outpatient sleep study this has been discussed with the patient. Will check the patient's dig level in the morning. Medications reviewed. Medications adjusted and new medications added. Medical decision making is of high complexity. 40 minutes spent on this patient with more than 50% of time spent in direct patient care. Discussed the case with Dr. Sy. 40 minutes spent on this patient with more than 50% of time spent in direct patient care. The patient is a full code. Ms. Jenny Camarena, his neighbor, is his surrogate healthcare decision maker. [This is because the patient's uncle is very old, and the patient thinks that the ankle may not be able to make medical decisions on the patient's behalf.]. Patient stable will sign off. Discussed with Dr. Sy. Will follow the patient in the office. The patient has my cell phone number to call me if he has any problems..
== END 2018-12-30 11:00 | disposition home or self-care (01) | DRG 282 ==
LOC: ER 08:04 → EH 10:08 → 3S 14:32
PROVIDERS: ADMIT Family Medicine; ATTEND Family Medicine
DX: I48.1 Persistent atrial fibrillation (principal); I21.A1 Myocardial infarction type 2; R07.9 Chest pain, unspecified; I10 Essential (primary) hypertension; E11.8 Type 2 diabetes mellitus with unspecified complications; E66.01 Morbid (severe) obesity due to excess calories; Z79.01 Long term (current) use of anticoagulants; Z79.84 Long term (current) use of oral hypoglycemic drugs; Z79.899 Other long term (current) drug therapy
CPT/HCPCS: 36415; 71045; 71275; 80048; 80053; 80162; 82272; 82550; 82553; 82962; 83036; 83735; 83880; 84443; 84484; 85025; 85610; 85730; 93005; 93010; 96374; 99285; J1160; J1815; J3490

== ENCOUNTER → 2019-01-07 | Outpatient (CLI) | payer BC | LOC: LAB 13:28 | PROVIDERS: ATTEND Family Medicine | DX: R74.8 Abnormal levels of other serum enzymes (principal) | CPT/HCPCS: 36415; 84484 ==

== ENCOUNTER → 2019-05-20 | Outpatient (CLI) | payer BC ==
--- NOTE | 2019-05-20 10:45 | RADIOLOGY REPORT (SQ) ---
EXAM DESCRIPTION: CT ABD/PELVIS NO ORAL OR IV COMPLETED DATE/TIME: 05/20/2019 10:35 am REASON FOR STUDY: HEMATURIA (R31.29) R31.29 OTHER MICROSCOPIC HEMATURIA COMPARISON: None. TECHNIQUE: CT scan of the abdomen and pelvis performed without intravenous or oral contrast. Images reviewed with lung, soft tissue, and bone windows. Reconstructed coronal and sagittal MPR images revi ewed. All images stored on PACS. All CT scanners at this facility use dose modulation, iterative reconstruction, and/or weight based d osing when appropriate to reduce radiation dose to as low as reasonably achievable (ALARA). [facility]: Dose Right [facility]: CareDose [facility]: Dose Right [facility]: Teradose 4D [facility]: [employer] RADIATION DOSE: mGy. LIMITATIONS: None. FINDINGS: LOWER CHEST: No significant findings. No nodules or infiltrates. NON-CONTRASTED LIVER, SPLEEN, ADRENALS: Evaluation limited by lack of IV contrast. No identified sign ificant masses. PANCREAS: No masses. No peripancreatic inflammatory changes. GALLBLADDER: No identified stones by CT criteria. No inflammatory changes to suggest cholecystitis. RIGHT KIDNEY AND URETER: No suspicious masses. Assessment limited by lack of IV contrast. Nonobstru cting lower calyceal calculus. No hydronephrosis or hydroureter. LEFT KIDNEY AND URETER: No suspicious masses. Assessment limited by lack of IV contrast. No signifi cant calcifications. No hydronephrosis or hydroureter. AORTA AND RETROPERITONEUM: No aneurysm. No retroperitoneal masses or adenopathy. BOWEL AND PERITONEAL CAVITY: No obvious masses or inflammatory changes. No free fluid. APPENDIX: Not identified. PELVIS, BLADDER, AND ABDOMINAL WALL:No abnormal masses. No free fluid. Bladder normal. BONES: No significant findings. OTHER: No other significant finding. IMPRESSION: There is a 6 mm nonobstructing lower calyceal calculus in the right kidney. No acute fi ndings. COMMENT: Quality ID # 436: Final reports with documentation of one or more dose reduction techniques (e.g., Automated exposure control, adjustment of the mA and/or kV according to patient size, use of iterative reconstruction technique) TECHNICAL DOCUMENTATION: JOB ID: [id number] [employer]- All Rights Reserved Reading location - IP/workstation name: [email or web address]
== END ==
LOC: RAD 10:06
PROVIDERS: ATTEND Physician Assistant
DX: R31.29 Other microscopic hematuria (principal)
CPT/HCPCS: 74176

== ENCOUNTER 2020-12-08 13:18 | Emergency (ER) | payer BC ==
--- NOTE | 2020-12-08 14:52 | ER Document Report ---
ED Medical Screen (RME) - General Chief Complaint: Possible Kidney Stone Stated Complaint: ABDOMINAL PAIN Time Seen by Provider: 12/08/20 14:38 Primary Care Provider: JOE KULKARNI PA [Primary Care Provider] - Follow up as needed TRAVEL OUTSIDE OF THE [place] IN LAST 30 DAYS: No - HPI Notes: Patient is a 50 y/o male with a hx of A-fib, HTN, and DM who presents with left flank pain that began three days ago. Patient describes his pain as sharp but denies any radiating pain. Patient reports fever, nausea and urinary pressure but denies hematuria, dysuria, abdominal pain, and vomiting. Patients states she was diagnosed with a large kidney stone over a year ago that would not pass on its own and was told to follow with urology. Patient never followed up. - Related Data Allergies/Adverse Reactions: No Known Allergies Allergy (Verified 12/25/18 08:06) Past Medical History - Past Medical History Cardiac Medical History: Reports: Hx Hypertension Endocrine Medical History: Reports: Hx Diabetes Mellitus Type 2 Renal/ Medical History: Denies: Hx Peritoneal Dialysis Physical Exam - Vital signs Vitals: Temp Pulse Resp BP Pulse Ox 101.4 F H 72 16 178/84 H 97 12/08/20 13:58 12/08/20 13:58 12/08/20 13:58 12/08/20 13:58 12/08/20 13:58 - Abdominal Distension: No distension Bowel sounds: Normal Tenderness: Nontender - Back Back: CVA tenderness - left Course - Re-evaluation Re-evalutation: I have greeted and performed a rapid initial assessment of this patient. A comprehensive ED assessment and evaluation of the patient, analysis of test results and completion of medical decision making process will be conducted by an additional ED providers. - Vital Signs Vital signs: Temp Pulse Resp BP Pulse Ox 101.4 F H 72 16 178/84 H 97 12/08/20 13:58 12/08/20 13:58 12/08/20 13:58 12/08/20 13:58 12/08/20 13:58 Doctor's Discharge - Discharge Referrals: JOE KULKARNI PA [Primary Care Provider] - Follow up as needed
--- NOTE | 2020-12-08 15:21 | RADIOLOGY REPORT (SQ) ---
EXAM DESCRIPTION: CT ABD/PELVIS NO ORAL OR IV IMAGES COMPLETED DATE/TIME: 12/08/2020 3:06 pm REASON FOR STUDY: left flank pain, r/o kidney stone COMPARISON: None. TECHNIQUE: CT scan of the abdomen and pelvis performed without intravenous or oral contrast. Images reviewed with lung, soft tissue, and bone windows. Reconstructed coronal and sagittal MPR images revi ewed. All images stored on PACS. All CT scanners at this facility use dose modulation, iterative reconstruction, and/or weight based d osing when appropriate to reduce radiation dose to as low as reasonably achievable (ALARA). [facility]: Dose Right [facility]: CareDose [facility]: Dose Right [facility]: Teradose 4D [facility]: [employer] RADIATION DOSE: mGy. LIMITATIONS: None. FINDINGS: LOWER CHEST: Right lower lobe and right middle lobe consolidations. No pleural effusion. NON-CONTRASTED LIVER, SPLEEN, ADRENALS: Evaluation limited by lack of IV contrast. No identified sign ificant masses. Incidental note is made of a 1.6 cm cyst versus hemangioma within the right hepatic lobe. PANCREAS: Predominantly fatty replaced. No masses. No peripancreatic inflammatory changes. GALLBLADDER: No identified stones by CT criteria. No inflammatory changes to suggest cholecystitis. RIGHT KIDNEY AND URETER: No suspicious masses. Assessment limited by lack of IV contrast. Re- demon stration of a single coarse, nonobstructing nephrolith within the inferior pole. No hydronephrosis or hydroureter. LEFT KIDNEY AND URETER: No suspicious masses. Assessment limited by lack of IV contrast. No signifi cant calcifications. No hydronephrosis or hydroureter. AORTA AND RETROPERITONEUM: No aneurysm. No retroperitoneal masses or adenopathy. BOWEL AND PERITONEAL CAVITY: No obvious masses or inflammatory changes. No free fluid. APPENDIX: Normal. PELVIS, BLADDER, AND ABDOMINAL WALL:No abnormal masses. No free fluid. Bladder normal. BONES: No significant findings. OTHER: No other significant finding. IMPRESSION: 1. Incompletely characterized multi lobar pneumonia involving the right lower and middl e lobes. 2. Stable nonobstructing right-sided nephrolith. No evidence of obstructive uropathy or acute intra -abdominal infectious/inflammatory process. No findings to correlate to the patient's reported left flank pain. COMMENT: Quality ID # [id number]: Final reports with documentation of one or more dose reduction techniques (e.g., Automated exposure control, adjustment of the mA and/or kV according to patient size, use of iterative reconstruction technique) TECHNICAL DOCUMENTATION: JOB ID: [id number] 2010 [employer]- All Rights Reserved Reading location - IP/workstation name: [email or web address]
[2020-12-08 15:51] LABS: ABSOLUTE MONOCYTES (AUTO) 0.8 10^3/uL (0.1-1.4); ABSOLUTE NEUT (AUTO) 2.3 10^3/uL (1.7-8.2); BASOPHILS % (AUTO) 0.8 % (0-2); EOSINOPHILS % (AUTO) 0.1 % (0-6); HEMATOCRIT 40.2 % (37.9-51.0); LYMPHOCYTES % (AUTO) 24.1 % (13-45); MEAN CORPUSCULAR HEMOGLOBIN 30.4 pg (27.0-33.4); MEAN CORPUSCULAR HGB CONC 34.8 g/dL (32.0-36.0); MEAN CORPUSCULAR VOLUME 87 fl (80-97); MONOCYTES % (AUTO) 19.1 % (3-13); PLATELET COUNT 268 10^3/uL (150-450); RED BLOOD COUNT 4.61 10^6/uL (4.35-5.55); RED CELL DISTRIBUTION WIDTH 13.8 % (11.5-14.0); SEGMENTED NEUTROPHILS % (AUTO) 55.9 % (42-78); TOTAL CELLS COUNTED % (AUTO) 100 %; WHITE BLOOD COUNT 4.2 10^3/uL (4.0-10.5)
[2020-12-08 16:09] LABS: ALBUMIN 4.2 g/dL (3.5-5.0); ALKALINE PHOSPHATASE 65 U/L (38-126); ANION GAP 8 (5-19); APPEARANCE,URINE CLEAR; ASPARTATE AMINO TRANSFERASE 21 U/L (17-59); BILIRUBIN,DIRECT 0.2 mg/dL (0.0-0.4); BILIRUBIN,TOTAL 0.5 mg/dL (0.2-1.3); BILIRUBIN,URINE NEGATIVE (NEGATIVE); BLOOD UREA NITROGEN 13 mg/dL (7-20); CALCIUM 9.1 mg/dL (8.4-10.2); CARBON DIOXIDE 32 mmol/L (22-30); CHLORIDE 98 mmol/L (98-107); COLOR,URINE YELLOW; GLUCOSE 106 mg/dL (75-110); GLUCOSE, URINE >=500 mg/dL (NEGATIVE); KETONES,URINE TRACE mg/dL (NEGATIVE); LEUKOCYTE ESTERASE,URINE NEGATIVE (NEGATIVE); NITRITE,URINE NEGATIVE (NEGATIVE); POTASSIUM 3.6 mmol/L (3.6-5.0); PROTEIN,URINE 30 mg/dL (NEGATIVE); TOTAL PROTEIN 7.9 g/dL (6.3-8.2); URINE SPECIFIC GRAVITY 1.038
[2020-12-08] MEDS ORDERED: ACETAMINOPHEN 325 MG TABLET PO ONE (17:35)
[2020-12-08] MEDS ORDERED: CEFTRIAXONE 1 GM/D5W RTU 1 GM/50 ML RTUPB IV ONE (17:37)
--- NOTE | 2020-12-08 17:44 | ER Document Report ---
ED General - General Chief Complaint: Flank Pain Stated Complaint: ABDOMINAL PAIN Time Seen by Provider: 12/08/20 14:38 Primary Care Provider: JOE KULKARNI PA [Primary Care Provider] - Follow up as needed Mode of Arrival: Ambulatory Information source: Patient Notes: Patient presents complaining of left lower back pain for the past 3 days. Patient states that he did develop a fever yesterday. Patient reports some nausea complains of pressure when voiding. Patient denies any dysuria or abdominal pain. Patient denies any cough or cold symptoms. Patient states he did have some numbness to the left lower extremity although that is presently resolved. Patient denies any cough or cold symptoms although is presently coughing in room. Patient denies any concerns about Covid. TRAVEL OUTSIDE OF THE [place] IN LAST 30 DAYS: No - HPI Onset: Other - 3 days Onset/Duration: Persistent Quality of pain: Achy Pain Level: 4 Associated symptoms: Nonproductive cough, Fever, Nausea. 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 denies: Malaise, Weakness EENT: No symptoms reported Cardiovascular: No symptoms reported. denies: Chest pain Respiratory: Cough. denies: Short of breath Gastrointestinal: Nausea. denies: Abdominal pain, Diarrhea, Vomiting Genitourinary: Flank pain. denies: Dysuria, Frequency, Hematuria, Incontinence, Retention Male Genitourinary: No symptoms reported Musculoskeletal: Back pain Skin: No symptoms reported Hematologic/Lymphatic: No symptoms reported Neurological/Psychological: No symptoms reported. denies: Headaches Physical Exam - Vital signs Vitals: Temp Pulse Resp BP Pulse Ox 101.4 F H 72 16 178/84 H 97 12/08/20 13:58 12/08/20 13:58 12/08/20 13:58 12/08/20 13:58 12/08/20 13:58 - General General appearance: Appears well, Alert In distress: None - HEENT Head: Normocephalic, Atraumatic Eyes: Normal Conjunctiva: Normal Nasal: Normal Mouth/Lips: Normal Mucous membranes: Normal Neck: Normal, Supple. No: Lymphadenopathy - Respiratory Respiratory status: No respiratory distress Chest status: Nontender Breath sounds: Nonproductive cough, Rales - Faint right lower lobe Chest palpation: Normal - Cardiovascular Rhythm: Regular. No: Tachycardia Heart sounds: S1 appreciated, S2 appreciated - Abdominal Inspection: Normal Distension: No distension Bowel sounds: Normal Tenderness: Nontender Organomegaly: No organomegaly - Back Back: Tender - Left lower lumbar paraspinal tenderness. No: CVA tenderness - Extremities General upper extremity: Normal inspection, Normal strength General lower extremity: Normal inspection, Normal strength - Neurological Neuro grossly intact: Yes Cognition: Normal [place] Coma Scale Eye Opening: Spontaneous Brian Coma Scale Verbal: Oriented Brian Coma Scale Motor: Obeys Commands Brian Coma Scale Total: 15 Notes: No saddle anesthesia, normal gait, no foot drop - Psychological Associated symptoms: Normal affect, Normal mood - Skin Skin Temperature: Warm Skin Moisture: Dry Skin Color: Normal Course - Re-evaluation Re-evalutation: 12/08/20 17:42 Patient with fever although no leukocytosis. Consulted with Dr. Mann regarding patient presentation and diagnostic evaluation thus far. Does not feel MRI is warranted as we have a likely source for patient's fever given his multilobar pneumonia. He does recommend obtaining lactic acid and treating with antibiotics at this time. Patient with left lower lumbar paraspinal tenderness with reported episodes of paresthesia to the left lateral thigh that are presently resolved. Patient neurologically intact with normal gait, no saddle anesthesia. 12/08/20 20:02 Suspect patient with low back pain with sciatica. Patient with incidental right lower lobe pneumonia. Patient without any tachycardia, tachypnea or hypoxia. Patient denies any shortness of breath or chest pain symptoms. The patient presents with low back pain without signs of spinal cord compression, cauda equina syndrome, aneurysm, or other serious etiology. The patient is neurologically intact. Given the extremely risk of these diagnoses further testing and evaluation for these possibilities does not appear to be indicated at this time. The patient was evaluated during the global Covid 19 pandemic, and that diagnosis was suspected/considered upon their initial presentation. Their evaluation, treatment and testing was consistent with current guidelines for patients who present with complaints or symptoms that may be related to Covid 19. Patient presents with upper respiratory symptoms worrisome for possible Covid 19. Patient does not have emergency worrying symptoms such as difficulty breathing, shortness of breath, chest pain, pressure, confusion or cyanosis. Patient appears suitable for discharge as vital signs are stable and patient is nontoxic in appearance. Good return precautions have been discussed with patient, patient verbalized understanding and is agreeable with discharge plan of care at this time. - Vital Signs Vital signs: Temp Pulse Resp BP Pulse Ox 99.1 F 67 18 142/71 H 95 12/08/20 19:54 12/08/20 19:54 12/08/20 19:54 12/08/20 19:54 12/08/20 19:54 - Laboratory Results Result Diagrams: 12/08/20 15:30 12/08/20 15:30 Laboratory Results Interpreted: 12/08/20 12/08/20 12/08/20 15:30 15:30 15:30 [place] % (Auto) 19.1 H Carbon Dioxide 32 H Urine Protein 30 H Urine Glucose (UA) >=500 H Urine Ketones TRACE H Urine Blood SMALL H Urine Urobilinogen 2.0 H 12/08/20 20:04 Labs- All tests 24 hr 12/08/20 12/08/20 12/08/20 15:30 15:30 15:30 WBC 4.2 RBC 4.61 Hgb 14.0 Hct 40.2 MCV 87 MCH 30.4 MCHC 34.8 RDW 13.8 Plt Count 268 Lymph % (Auto) 24.1 [place] % (Auto) 19.1 H Eos % (Auto) 0.1 Baso % (Auto) 0.8 Absolute Neuts (auto) 2.3 Absolute Lymphs (auto) 1.0 Absolute Monos (auto) 0.8 Absolute Eos (auto) 0.0 Absolute Basos (auto) 0.0 Seg Neutrophils % 55.9 Sodium 138.4 Potassium 3.6 Chloride 98 Carbon Dioxide 32 H Anion Gap 8 BUN 13 Creatinine 1.08 Est GFR ( Amer) > 60 Est GFR (MDRD) Non-Af > 60 Glucose 106 Lactic Acid Calcium 9.1 Total Bilirubin 0.5 Direct Bilirubin 0.2 Neonat Total Bilirubin Not Reportable Neonat Direct Bilirubin Not Reportable Neonat Indirect Bili Not Reportable AST 21 ALT 10 Alkaline Phosphatase 65 Total Protein 7.9 Albumin 4.2 Urine Color YELLOW Urine Appearance CLEAR Urine pH 6.0 Ur Specific [place] 1.038 Urine Protein 30 H Urine Glucose (UA) >=500 H Urine Ketones TRACE H Urine Blood SMALL H Urine Nitrite NEGATIVE Urine Bilirubin NEGATIVE Urine Urobilinogen 2.0 H Ur Leukocyte Esterase NEGATIVE Urine WBC (Auto) 1 Urine RBC (Auto) 9 Squamous Epi Cells Auto 1 Urine Ascorbic Acid NEGATIVE 12/08/20 18:17 WBC RBC Hgb Hct MCV MCH MCHC RDW Plt Count Lymph % (Auto) [place] % (Auto) Eos % (Auto) Baso % (Auto) Absolute Neuts (auto) Absolute Lymphs (auto) Absolute Monos (auto) Absolute Eos (auto) Absolute Basos (auto) Seg Neutrophils % Sodium Potassium Chloride Carbon Dioxide Anion Gap BUN Creatinine Est GFR ( Amer) Est GFR (MDRD) Non-Af Glucose Lactic Acid 1.0 Calcium Total Bilirubin Direct Bilirubin Neonat Total Bilirubin Neonat Direct Bilirubin Neonat Indirect Bili AST ALT Alkaline Phosphatase Total Protein Albumin Urine Color Urine Appearance Urine pH Ur Specific [place] Urine Protein Urine Glucose (UA) Urine Ketones Urine Blood Urine Nitrite Urine Bilirubin Urine Urobilinogen Ur Leukocyte Esterase Urine WBC (Auto) Urine RBC (Auto) Squamous Epi Cells Auto Urine Ascorbic Acid Critical Laboratory Results Reviewed: No Critical Results - Radiology Results Critical Radiology Results Reviewed: No Critical Results Discharge - Discharge Clinical Impression: Encounter for screening for COVID-19, Nausea Pneumonia Qualifiers: Pneumonia type: due to unspecified organism Laterality: right Lung location: unspecified part of lung Qualified Code(s): J18.9 - Pneumonia, unspecified organism Low back pain Qualifiers: Chronicity: acute Back pain laterality: left Sciatica presence: with sciatica Sciatica laterality: sciatica of left side Qualified Code(s): M54.42 - Lumbago with sciatica, left side Condition: Stable Disposition: HOME, SELF-CARE Instructions: COVID-19 Guidance for Persons Under Investigation, Antinausea Medication ([facility]), Doxycycline ([facility]), Pneumonia ([facility]), Rocephin ([facility]), Sciatica ([facility]) Additional Instructions: Return immediately for any new or worsening symptoms: Persistent fever, shortness of breath, persistent vomiting, weakness in extremities, difficulty voiding or any concerning new symptoms Followup with your primary care provider, call tomorrow to make a followup appointment Prescriptions: Doxycycline Hyclate 100 mg PO BID #20 tablet. Lidocaine [Lidoderm 5% (700 mg) Transdermal Patch] 1 patch TP DAILY PRN #10 adh..patch PRN Reason: Hydrocodone/Acetaminophen [[place] 5-325 mg Tablet] 1 tab PO Q6 PRN #6 tablet PRN Reason: Inhaler,Assist Device,Accesory [Optichamber] 1 each MC Q4 PRN #1 each PRN Reason: Albuterol Sulfate [Proair Hfa Inhalation Aerosol 8.5 gm Mdi] 2 puff IH Q4 PRN #1 mdi PRN Reason: Ondansetron [Zofran Odt 4 mg Tablet] 1 tab PO Q6H #15 tab.rapdis Forms: Return to Work Referrals: JOE KULKARNI PA [Primary Care Provider] - Follow up as needed
--- NOTE | 2020-12-08 18:08 | RADIOLOGY REPORT (SQ) ---
EXAM DESCRIPTION: CHEST SINGLE VIEW IMAGES COMPLETED DATE/TIME: 12/08/2020 5:51 pm REASON FOR STUDY: fever COMPARISON: 12/25/2018 EXAM PARAMETERS: NUMBER OF VIEWS: One view. TECHNIQUE: Single frontal radiographic view of the chest acquired. RADIATION DOSE: NA LIMITATIONS: None. FINDINGS: LUNGS AND PLEURA: Faintly defined infiltrate is present in the right lower lung field. MEDIASTINUM AND HILAR STRUCTURES: No masses. Contour normal. HEART AND VASCULAR STRUCTURES: Heart normal in size. Normal vasculature. BONES: No acute findings. HARDWARE: None in the chest. OTHER: No other significant finding. IMPRESSION: Cannot exclude limited right lower lobe pneumonia. TECHNICAL DOCUMENTATION: JOB ID: [id number] 2010 [employer]- All Rights Reserved Reading location - IP/workstation name: [email or web address]
[2020-12-08] MEDS ORDERED: ONDANSETRON HCL INJ/PF 4 MG/2 ML SDV IV ONE (18:21)
[2020-12-08] MEDS ORDERED: DOXYCYCLINE HYCLATE INJ 100 MG VIAL IV ONE (18:54)
[2020-12-08 19:57] VITALS: BP 142/71
[2020-12-08] MEDS ORDERED: DOXYCYCLINE HYCLATE 100 MG TABLET PO ONE (19:58)
[2020-12-08] MEDS ORDERED: HYDROCODONE/ACETAMINOPHEN 5-325 MG (6 TAB/ER DISP) PO PRN (20:10)
[2020-12-08] MEDS ORDERED: LIDOCAINE 5% (700 MG) TRANSDERMAL ADH..PATCH TP ONE (20:10)
== END 2020-12-08 21:01 | disposition home or self-care (01) ==
LOC: ER 13:18
DX: M54.42 Lumbago with sciatica, left side (principal); J18.9 Pneumonia, unspecified organism; R11.0 Nausea; R10.9 Unspecified abdominal pain; M54.5 Low back pain; R50.9 Fever, unspecified; R05 Cough; Z20.828 Contact with and (suspected) exposure to other viral communicable diseases; Z79.84 Long term (current) use of oral hypoglycemic drugs; Z79.899 Other long term (current) drug therapy; Z79.01 Long term (current) use of anticoagulants; I10 Essential (primary) hypertension; E11.9 Type 2 diabetes mellitus without complications
CPT/HCPCS: 99285; 96375; 96365; 36415; 87040; 83605; 85025; 80053; 81001; 71045; 74176; U0003; J2405; J0696; C9803; 87635